=== PATIENT | female | born 1990 | race Caucasian/White ===

== ENCOUNTER 2022-05-15 13:01 | Outpatient (CLI) | payer MEDICAID | END 2022-05-15 23:59 | disposition critical access hospital (66) | LOC: EMS 13:01 | DX: M54.6 Pain in thoracic spine (principal); R07.9 Chest pain, unspecified; R11.2 Nausea with vomiting, unspecified | CPT/HCPCS: A0425; A0427; A0999 ==

== ENCOUNTER 2022-05-15 13:21 | Emergency (ER) | payer MEDICAID ==
[2022-05-15] MEDS ORDERED: iohexoL-300 100 ML VIAL ONE (13:33)
--- NOTE | 2022-05-15 13:37 | ED Physician Documentation ---
PD HPI CHEST PAIN - Stated complaint Stated Complaint: BACK PX - Chief complaint Chief Complaint: Cardiac - History obtained from History obtained from: Patient - Additional information Additional information: Otherwise healthy 31-year-old woman who is 1 month from an uncomplicated vaginal delivery was at the case assistant's office today with her baby, she is breast-feeding and she developed severe sudden onset none motion related mid T-spine pain that radiates to the chest associated with shortness of breath "from Pain." She became nauseous and vomited with it. This is never happened before. There was no pain this morning. No family or personal history of vascular disease. PD PAST MEDICAL HISTORY - Present Medications Home Medications: Ambulatory Orders Medication Instructions Recorded Confirmed No Known Home Medications 05/15/22 05/15/22 - Allergies Allergies/Adverse Reactions: Allergies Allergy/AdvReac Type Severity Reaction Status Date / Time No Known Drug Allergies Allergy Verified 05/15/22 13:26 PD ED PE NORMAL - Vitals Vital signs reviewed: Yes - General General: Alert and oriented X 3 (She appears uncomfortable) - HEENT HEENT: PERRL, EOMI - Neck Neck: Supple, no meningeal sign, No bony TTP - Cardiac Cardiac: RRR, No murmur, Strong equal pulses (Radial) - Respiratory Respiratory: No respiratory distress, Clear bilaterally - Abdomen Abdomen: Non tender - Derm Derm: Normal color, Warm and dry - Extremities Extremities: No edema, No calf tenderness / cord - Neuro Neuro: Alert and oriented X 3, Normal speech Results - Vitals Vitals: Vital Signs - 24 hr 05/15/22 05/15/22 05/15/22 13:25 13:26 13:33 Temperature 36.8 C Heart Rate 72 67 Respiratory 16 28 H 19 Rate Blood Pressure 119/74 O2 Saturation 100 99 05/15/22 14:15 Temperature Heart Rate 75 Respiratory 16 Rate Blood Pressure 113/68 O2 Saturation 98 Oxygen O2 Source Room air - EKG (time done) 1324 EKG releavant findings:: EKG personally interpreted by author of this note. Relevant findings are: Rate: Rate (enter#) (71) Rhythm: NSR [place]: Normal Intervals: Normal OR QRS: Normal Ischemia: Normal ST segments - Labs Labs: Laboratory Tests 05/15/22 05/15/22 05/15/22 13:36 13:36 13:36 WBC 7.3 RBC 4.79 Hgb 13.7 Hct 41.3 MCV 86.2 MCH 28.6 MCHC 33.2 RDW 11.9 L Plt Count 291 MPV 10.2 Neut # (Auto) 4.4 Lymph # (Auto) 2.3 [place] # (Auto) 0.3 Eos # (Auto) 0.3 Baso # (Auto) 0.0 Absolute Nucleated RBC 0.00 Nucleated RBC % 0.0 PT 10.9 INR 1.0 Sodium 138 Potassium 3.7 Chloride 110 Carbon Dioxide 22 Anion Gap 6.0 BUN 14 Creatinine 0.7 Estimated GFR (MDRD) 97 Glucose 99 Calcium 8.8 Total Bilirubin 0.5 AST 56 H ALT 47 Alkaline Phosphatase 91 Total Protein 6.9 Albumin 4.0 Globulin 2.9 Albumin/Globulin Ratio 1.4 PD Medical Decision Making - ED course ED course: 31-year-old woman who is 1 month presents with sudden onset back pain radiating to the chest and looks uncomfortable with declines pain medication. At least initially, she did to submit to some Tylenol later noting that she is breast-feeding. The initial main concern was for aortic pathology, less likely would be atypical angina. CT angios studies showed no vascular issues and her EKG was normal but she was noted to have gallstones. She is not tender in the right upper quadrant so I discussed with the patient that that could be causing her pain but was not necessarily the cause and as such she was encouraged to return if pain recurred noting that it got much better during the course of the visit. But if it becomes a recurrent milder issue she should follow-up with the surgeon. Departure - Departure Disposition: 01 Home, Self Care Clinical Impression: Back pain, Chest pain, Cholelithiasis Condition: Good Record reviewed to determine appropriate education?: Yes Instructions: ED Chest Pain Atypical Unkn Cause, Gallstones Dc Comments: As discussed, the only finding of note today was gallstones. No evidence of active serious issue, noting that we were specifically worried about your aorta based on the history when you got here, no evidence of anything going on there. If the pain becomes a recurrent issue you should follow-up with a surgeon for consideration of cholecystectomy if it is your gallbladder but if it comes back and is severe again please return for reevaluation.
[2022-05-15 13:41] LABS: BASOPHILS % (AUTO) 0.3 %; EOSINOPHILS # (AUTO) 0.3 10^3/uL (0.0-0.7); HCT - HEMATOCRIT 41.3 % (37.0-47.0); HGB - HEMOGLOBIN 13.7 g/dL (12.0-16.0); LYMPHOCYTES # (AUTO) 2.3 10^3/uL (1.5-3.5); LYMPHOCYTES % (AUTO) 31.5 %; MEAN CORPUSCULAR HEMOGLOBIN 28.6 pg (27.0-31.0); MEAN CORPUSCULAR HGB CONC 33.2 g/dL (32.0-36.0); MEAN CORPUSCULAR VOLUME 86.2 fL (81.0-99.0); MEAN PLATELET VOLUME 10.2 fL (7.9-10.8); MONOCYTES # (AUTO) 0.3 10^3/uL (0.0-1.0); NEUTROPHILS # (AUTO) 4.4 10^3/uL (1.5-6.6); NEUTROPHILS % (AUTO) 59.9 %; PLT - PLATELET COUNT 291 10^3/uL (130-450); RED BLOOD COUNT 4.79 10^6/uL (4.20-5.40); RED CELL DISTRIBUTION WIDTH 11.9 % (12.0-15.0); WHITE BLOOD COUNT 7.3 x10^3/uL (4.8-10.8)
[2022-05-15 13:53] LABS: PT - PROTHROMBIN TIME 10.9 secs (9.9-12.6)
[2022-05-15] MEDS ORDERED: ACETAMINOPHEN 500 MG TABLET PO STA (14:01)
[2022-05-15] MEDS ORDERED: iohexoL-300 100 ML VIAL IVP ONE (14:09)
--- OUTSIDE RECORDS SUMMARY | 2022-05-15 14:12 | EXTERNAL MEDICAL SUMMARY RPT | Continuity of Care Document ---
:1990 Author Organization [facility] Address [address] [place] [address] Phone Care Team Providers Name Role Phone Jolene Farrell Unavailable Unavailable Allergies and Intolerances date description facility type (no date) No Known Drug Allergies [facility] (unkn own) Encounters No information. Functional Status No information. Immunizations No information. Medications date description facility 2022-03-18 00:00 Sertraline [facility] 2022-04-15 00:00 Valacyclovir [facility] 2022-03-18 00:00 Aspirin [facility] Problems date description facility 2022-04-06 00:00 Decreased movement during pregnan cy [facility] 2022-04-06 20:40 Decreased movements, unspecified [facility] trimester, not applic 2022-04-09 10:02 Decreased movements, unspecified [facility] trimester, not applic 2022-04-12 13:46 Decreased movements, unspecified [facility] trimester, not applic 2022-04-15 00:00 Anogenital herpes simplex virus (HSV) i nfection [facility] 2022-04-15 00:00 Depression [facility] 2022-04-15 00:00 Anxiety [facility] 2022-04-15 00:00 Normal spontaneous vaginal delivery [facility] 2022-04-16 10:51 Encounter for full-term uncomplicated d [facility] Procedures No information. Results/Labs test date author facility value unit interpret ation Result panel 1 (unknown) (no date) (unknown[facility]) Result panel 2 (unknown) (no date) (unknown) [place] ([facility] unknown) Result panel 3 (unknown) (no date) (unknown) [place] [facility] unknown) Result panel 4 (unknown) (no date) (unknown) [place] [facility] unknown) Result panel 5 (unknown) (no date) (unknown[facility]) Result panel 6 (unknown) (no date) (unknown) [facility]) Result panel 7 (unknown) (no date) (unknown[facility]) Result panel 8 (unknown) (no date) (unknown) [facility]) Result panel 9 (unknown) (no date) (unknown[facility]) Result panel 10 (unknown) (no date) (unknown[facility]) Result panel 11 (unknown) (no date) (unknown[facility]) Result panel 12 (unknown) (no date) (unknown[facility]) Result panel 13 (unknown) (no (unknown) (unknown) (no value) (units (unk nown) date) unknown) (unknown) (no (unknown) (unknown) 'aggressively' (units ( unknown) date) scratched it unknown) yesterday with her fingernail, and caused some minor (unknown) (no (unknown) (unknown) [id number] (units (unkno wn) date) unknown) (unknown) (no (unknown) (unknown) 03/18/22 (units (unkno wn) date) unknown) (unknown) (no (unknown) (unknown) 03/18/22] (units (unkn own) date) unknown) (unknown) (no (unknown) (unknown) 045 (units (unkno wn) date) unknown) (unknown) (no (unknown) (unknown) 10:49 (units (unkno wn) date) unknown) (unknown) (no (unknown) (unknown) Age/Sex: 31 / F (units (unknown) date) Date of Service: unknown) (unknown) (no (unknown) (unknown) Allergies (units (unkn own) date) unknown) (unknown) (no (unknown) (unknown) [facility] (units (unknown) date) Medicine unknown) (unknown) (no (unknown) (unknown) [place], [place] (units ( unknown) date) [id number] unknown) (unknown) (no (unknown) (unknown) Attending Dr: (units ( unknown) date) Bree Giles unknown) Maegan (unknown) (no (unknown) (unknown) BMI 31.4 (units (unkno wn) date) unknown) (unknown) (no (unknown) (unknown) BP 118/70 (units (unkn own) date) unknown) (unknown) (no (unknown) (unknown) Blood Pressure (units (unknown) date) Location Lt unknown) radial (unknown) (no (unknown) (unknown) : 1990 (units (unknown) date) Acct:[id number] unknown) (unknown) (no (unknown) (unknown) Dept at (units (unkno wn) date) . unknown) (unknown) (no (unknown) (unknown) Documented By: (units (unknown) date) Bree Giles unknown) Maegan 03/18/22 1 (unknown) (no (unknown) (unknown) Draft (units (unkno wn) date) unknown) (unknown) (no (unknown) (unknown) Height 5 ft 3 in (units (unknown) date) unknown) (unknown) (no (unknown) (unknown) Intake Note: (units (u nknown) date) unknown) (unknown) (no (unknown) (unknown) Intake performed (units (unknown) date) by: Kita Garner unknown) (unknown) (no (unknown) (unknown) Intake (units (unkno wn) date) unknown) (unknown) (no (unknown) (unknown) Intake- Clincial (units (unknown) date) Staff unknown) (unknown) (no (unknown) (unknown) Loc: [facility] (units (unkno wn) date) unknown) (unknown) (no (unknown) (unknown) Medications (units (un known) date) unknown) (unknown) (no (unknown) (unknown) No Known Drug (units ( unknown) date) Allergies Allergy unknown) (Unverified 03/18/22 10:48) (unknown) (no (unknown) (unknown) Oxygen Delivery (units (unknown) date) Method room air unknown) (unknown) (no (unknown) (unknown) Patient presents (units (unknown) date) to [facility] with unknown) concerns for itching and pain to right ear. Patient (unknown) (no (unknown) (unknown) Patient: (units (unkno wn) date) Maria Esther Cameron unknown) MR#: [id number] (unknown) (no (unknown) (unknown) Position Sitting (units (unknown) date) unknown) (unknown) (no (unknown) (unknown) Pulse 88 (units (unkno wn) date) unknown) (unknown) (no (unknown) (unknown) Pulse Oximetry (units (unknown) date) (%) 98 unknown) (unknown) (no (unknown) (unknown) Pulse Source (units (u nknown) date) Monitor unknown) (unknown) (no (unknown) (unknown) Reason For Visit (units (unknown) date) unknown) (unknown) (no (unknown) (unknown) Respiration 16 (units (unknown) date) unknown) (unknown) (no (unknown) (unknown) Signed By: (units (unk nown) date) unknown) (unknown) (no (unknown) (unknown) Temp 98.5 F (units (un known) date) unknown) (unknown) (no (unknown) (unknown) Temp Source (units (un known) date) Temporal Artery unknown) Scan (unknown) (no (unknown) (unknown) This note may (units ( unknown) date) have been all or unknown) partially generated using voice recognition (unknown) (no (unknown) (unknown) Visit Reasons: (units (unknown) date) [employer] Right ear unknown) itching x 2 months (unknown) (no (unknown) (unknown) Vitals (units (unkno wn) date) unknown) (unknown) (no (unknown) (unknown) [facility] (units (unknown) date) Visit unknown) (unknown) (no (unknown) (unknown) Weight 177 lb 7 (units (unknown) date) oz unknown) (unknown) (no (unknown) (unknown) aspirin 81 mg (units ( unknown) date) chewable tablet unknown) 81 mg PO DAILY 03/18/22 [History Confirmed (unknown) (no (unknown) (unknown) bleeding. She (units (u nknown) date) reports increased unknown) pain and tenderness in the ear, radiating to her (unknown) (no (unknown) (unknown) have occurred. (units (unknown) date) If there are any unknown) questions, please contact the Medical Records (unknown) (no (unknown) (unknown) jaw since (units (unkn own) date) scratching the unknown) ear canal yesterday. Denies fever, congestion, or any (unknown) (no (unknown) (unknown) may occur. (units (unk nown) date) Occasional unknown) wrong-word or 'sound-alike' substitutions may have (unknown) (no (unknown) (unknown) occurred due to (units (unknown) date) the inherent unknown) limitations of voice recognition software. Please (unknown) (no (unknown) (unknown) read the note (units ( unknown) date) carefully and unknown) recognize, using context, where these substitutions (unknown) (no (unknown) (unknown) respiratory (units (un known) date) symptoms. Patient unknown) is currently 36 weeks . (unknown) (no (unknown) (unknown) sertraline 100 (units (unknown) date) mg tablet 100 mg unknown) PO DAILY 03/18/22 [History Confirmed 03/18/22] (unknown) (no (unknown) (unknown) software. 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 She reports she Result panel 14 (unknown) (no (unknown) (unknown) (no value) (units (unk nown) date) unknown) (unknown) (no (unknown) (unknown) 'aggressively' (units ( unknown) date) scratched it unknown) yesterday with her fingernail, and caused some minor (unknown) (no (unknown) (unknown) [id number] (units (unkno wn) date) unknown) (unknown) (no (unknown) (unknown) 03/18/22 (units (unkno wn) date) unknown) (unknown) (no (unknown) (unknown) 03/18/22] (units (unkn own) date) unknown) (unknown) (no (unknown) (unknown) 045 (units (unkno wn) date) unknown) (unknown) (no (unknown) (unknown) 10:49 (units (unkno wn) date) unknown) (unknown) (no (unknown) (unknown) 31-year-old (units (un known) date) female who is 36 unknown) weeks 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 (unknown) (no (unknown) (unknown) 7.5 mL 0RF (units (unk nown) date) otitis externa unknown) (unknown) (no (unknown) (unknown) Age/Sex: 31 / F (units (unknown) date) Date of Service: unknown) (unknown) (no (unknown) (unknown) All systems (units (un known) date) reviewed + are unknown) unremarkable except as noted in HPI and below (unknown) (no (unknown) (unknown) Allergies (units (unkn own) date) unknown) (unknown) (no (unknown) (unknown) [facility] (units (unknown) date) Medicine unknown) (unknown) (no (unknown) (unknown) [place], [place] (units ( unknown) date) [id number] unknown) (unknown) (no (unknown) (unknown) Assessment + (units (u nknown) date) Plan unknown) (unknown) (no (unknown) (unknown) Attending Dr: (units ( unknown) date) Bree Giles unknown) P.A-C (unknown) (no (unknown) (unknown) BACK: Nontender (units (unknown) date) without deformity unknown) or crepitance. No flank tenderness. (unknown) (no (unknown) (unknown) BMI 31.4 (units (unkno wn) date) unknown) (unknown) (no (unknown) (unknown) BP 118/70 (units (unkn own) date) unknown) (unknown) (no (unknown) (unknown) Blood Pressure (units (unknown) date) Location Lt unknown) radial (unknown) (no (unknown) (unknown) CARDIOVASCULAR: (units (unknown) date) Regular rate and unknown) rhythm without murmurs, gallops, or rubs. (unknown) (no (unknown) (unknown) Chief Complaint (units (unknown) date) unknown) (unknown) (no (unknown) (unknown) Chief Complaint: (units (unknown) date) right ear pain, unknown) pressure, itching (unknown) (no (unknown) (unknown) Const (units (unkno wn) date) unknown) (unknown) (no (unknown) (unknown) : 1990 (units (unknown) date) Acct:[id number] unknown) (unknown) (no (unknown) (unknown) Dept at (units (unkno wn) date) . unknown) (unknown) (no (unknown) (unknown) Details: (units (unkno wn) date) unknown) (unknown) (no (unknown) (unknown) Documented By: (units (unknown) date) Bree Giles unknown) Maegan 03/18/22 1 (unknown) (no (unknown) (unknown) Draft (units (unkno wn) date) unknown) (unknown) (no (unknown) (unknown) EAR-RIGHT Q12H (units (unknown) date) otitis externa 10 unknown) days #7.5 mL 03/18/22 [Rx Confirmed 03/18/22] (unknown) (no (unknown) (unknown) ENT: Nose (units (unkn own) date) without bleeding, unknown) purulent drainage. Throat without erythema, (unknown) (no (unknown) (unknown) EXTREMITIES: No (units (unknown) date) edema or joint unknown) tenderness. (unknown) (no (unknown) (unknown) EYES: Pupils (units (u nknown) date) equal round and unknown) reactive. Extraocular motions intact. No scleral (unknown) (no (unknown) (unknown) Exam Narrative (units (unknown) date) unknown) (unknown) (no (unknown) (unknown) Exam Narrative: (units (unknown) date) unknown) (unknown) (no (unknown) (unknown) Exam (units (unkno wn) date) unknown) (unknown) (no (unknown) (unknown) GASTROINTESTINAL (units (unknown) date) : Abdomen unknown) protuberant consistent with 32 weeks' gestation. (unknown) (no (unknown) (unknown) GENERAL: 31 year (units (unknown) date) old patient unknown) appears stated age. Well-developed patient, in mild (unknown) (no (unknown) (unknown) HEAD: (units (unkno wn) date) Atraumatic. unknown) Normocephalic. (unknown) (no (unknown) (unknown) HPI (units (unkno wn) date) unknown) (unknown) (no (unknown) (unknown) Height 160.02 cm (units (unknown) date) unknown) (unknown) (no (unknown) (unknown) Intake Note: (units (u nknown) date) unknown) (unknown) (no (unknown) (unknown) Intake performed (units (unknown) date) by: Kita Garner unknown) (unknown) (no (unknown) (unknown) Intake (units (unkno wn) date) unknown) (unknown) (no (unknown) (unknown) Intake- Clincial (units (unknown) date) Staff unknown) (unknown) (no (unknown) (unknown) Loc: [facility] (units (unkno wn) date) unknown) (unknown) (no (unknown) (unknown) Medications (units (un known) date) unknown) (unknown) (no (unknown) (unknown) Medications: (units (u nknown) date) unknown) (unknown) (no (unknown) (unknown) NECK: Trachea (units ( unknown) date) midline. Non unknown) tender (unknown) (no (unknown) (unknown) NEURO: AOx3. (units (u nknown) date) unknown) (unknown) (no (unknown) (unknown) New (units (unkno wn) date) unknown) (unknown) (no (unknown) (unknown) No Known Drug (units ( unknown) date) Allergies Allergy unknown) (Unverified 03/18/22 10:48) (unknown) (no (unknown) (unknown) Oxygen Delivery (units (unknown) date) Method room air unknown) (unknown) (no (unknown) (unknown) Patient presents (units (unknown) date) to [facility] with unknown) concerns for itching and pain to right ear. Patient (unknown) (no (unknown) (unknown) Patient: (units (unkno wn) date) RakeshMaria Esther S unknown) MR#: [id number] (unknown) (no (unknown) (unknown) Position Sitting (units (unknown) date) unknown) (unknown) (no (unknown) (unknown) Pulse 88 (units (unkno wn) date) unknown) (unknown) (no (unknown) (unknown) Pulse Oximetry (units (unknown) date) (%) 98 unknown) (unknown) (no (unknown) (unknown) Pulse Source (units (u nknown) date) Monitor unknown) (unknown) (no (unknown) (unknown) RESPIRATORY: (units (un known) date) Clear to unknown) auscultation. Breath sounds equal bilaterally. No wheezes, (unknown) (no (unknown) (unknown) ROS (units (unkno wn) date) unknown) (unknown) (no (unknown) (unknown) Reason For Visit (units (unknown) date) unknown) (unknown) (no (unknown) (unknown) Respiration 16 (units (unknown) date) unknown) (unknown) (no (unknown) (unknown) SKIN: No rash or (units (unknown) date) erythema of unknown) visible areas (unknown) (no (unknown) (unknown) Signed By: (units (unk nown) date) unknown) (unknown) (no (unknown) (unknown) Temp 98.5 F (units (un known) date) unknown) (unknown) (no (unknown) (unknown) Temp Source (units (un known) date) Temporal Artery unknown) Scan (unknown) (no (unknown) (unknown) This note may (units ( unknown) date) have been all or unknown) partially generated using voice recognition (unknown) (no (unknown) (unknown) Visit Reasons: (units (unknown) date) [employer] Right ear unknown) itching x 2 months (unknown) (no (unknown) (unknown) Vitals (units (unkno wn) date) unknown) (unknown) (no (unknown) (unknown) Walk In Clinic (units (unknown) date) Visit unknown) (unknown) (no (unknown) (unknown) Weight 80.484 kg (units (unknown) date) unknown) (unknown) (no (unknown) (unknown) aspirin 81 mg (units ( unknown) date) chewable tablet unknown) 81 mg PO DAILY 03/18/22 [History Confirmed (unknown) (no (unknown) (unknown) at the inferior (units (unknown) date) portion of the unknown) canal consistent with early otitis externa or (unknown) (no (unknown) (unknown) bleeding. She (units (u nknown) date) reports increased unknown) pain and tenderness in the ear, radiating to her (unknown) (no (unknown) (unknown) ciprofloxacin (units ( unknown) date) 0.3 unknown) %-dexamethasone 0.1 % ear drops,suspension (Ciprodex) 4 drp (unknown) (no (unknown) (unknown) ciprofloxacin-de (units (unknown) date) xamethasone unknown) 0.3-0.1 % (Ciprodex) 4 drps EAR-RIGHT Q12H 10 days (unknown) (no (unknown) (unknown) distress. (units (unkn own) date) unknown) (unknown) (no (unknown) (unknown) earaches as a (units ( unknown) date) child and this unknown) does not feel like a typical earache but she says (unknown) (no (unknown) (unknown) half ago her ear (units (unknown) date) became painful on unknown) the right and has been worsening since now (unknown) (no (unknown) (unknown) have occurred. (units (unknown) date) If there are any unknown) questions, please contact the Medical Records (unknown) (no (unknown) (unknown) her (units ( unknown) date) has been unknown) progressing well this is her 2nd . She went to (unknown) (no (unknown) (unknown) icterus. No (units (un known) date) injection or unknown) drainage. (unknown) (no (unknown) (unknown) is actually been (units (unknown) date) having itching in unknown) her right ear for about 2 months 2 days ago (unknown) (no (unknown) (unknown) it became so (units (un known) date) bothersome that unknown) she was itching in her ear using her pinky nail and (unknown) (no (unknown) (unknown) it is very (units (unk nown) date) painful. She unknown) denies any other complaints or concerns and states that (unknown) (no (unknown) (unknown) jaw since (units (unkn own) date) scratching the unknown) ear canal yesterday. Denies fever, congestion, or any (unknown) (no (unknown) (unknown) may occur. (units (unk nown) date) Occasional unknown) wrong-word or 'sound-alike' substitutions may have (unknown) (no (unknown) (unknown) membrane normal (units (unknown) date) appearance pearly unknown) duran with cone of light visible. Right (unknown) (no (unknown) (unknown) nausea vomiting (units (unknown) date) diarrhea or any unknown) other symptoms. (unknown) (no (unknown) (unknown) occurred due to (units (unknown) date) the inherent unknown) limitations of voice recognition software. Please (unknown) (no (unknown) (unknown) possibly (units (unkno wn) date) cellulitis. Teeth unknown) unremarkable. No oral swelling noted. No oral (unknown) (no (unknown) (unknown) presents with (units ( unknown) date) concern for right unknown) ear pain pressure in itching. Patient states he (unknown) (no (unknown) (unknown) rales, or (units (unkn own) date) rhonchi. unknown) (unknown) (no (unknown) (unknown) read the note (units ( unknown) date) carefully and unknown) recognize, using context, where these substitutions (unknown) (no (unknown) (unknown) respiratory (units (un known) date) symptoms. Patient unknown) is currently 36 weeks . (unknown) (no (unknown) (unknown) sertraline 100 (units (unknown) date) mg tablet 100 mg unknown) PO DAILY 03/18/22 [History Confirmed 03/18/22] (unknown) (no (unknown) (unknown) she rayo blood. (units (unknown) date) She did not think unknown) a whole lot of it but then about a day and a (unknown) (no (unknown) (unknown) she states that (units (unknown) date) there is an unknown) intense pressure and she notices pain in her ear (unknown) (no (unknown) (unknown) significant pain (units (unknown) date) with manipulation unknown) of the tragus, no pain with manipulation of (unknown) (no (unknown) (unknown) software. 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 She reports she (unknown) (no (unknown) (unknown) tenderness. (units (un known) date) unknown) (unknown) (no (unknown) (unknown) the dentist last (units (unknown) date) week and has no unknown) known dental problems. Denies fevers chills (unknown) (no (unknown) (unknown) the pinna. The (units (unknown) date) ear canal on the unknown) right is inflamed erythematous slightly swollen (unknown) (no (unknown) (unknown) tonsillar (units (unkn own) date) hypertrophy or unknown) exudate. Airway patent. Left ear canal and tympanic (unknown) (no (unknown) (unknown) tympanic (units (unkno wn) date) membrane is unknown) pearly duran with cone of light visible. Patient has (unknown) (no (unknown) (unknown) when she chews. (units (unknown) date) She is not seen unknown) any drainage from her ear. She states she had Result panel 15 (unknown) (no (unknown) (unknown) (no value) (units (unk nown) date) unknown) (unknown) (no (unknown) (unknown) 'aggressively' (units ( unknown) date) scratched it unknown) yesterday with her fingernail, and caused some minor (unknown) (no (unknown) (unknown) (1) Otitis (units (unk nown) date) externa: unknown) (unknown) (no (unknown) (unknown) [id number] (units (unkno wn) date) unknown) (unknown) (no (unknown) (unknown) 03/18/22 1215 (units ( unknown) date) unknown) (unknown) (no (unknown) (unknown) 03/18/22 (units (unkno wn) date) unknown) (unknown) (no (unknown) (unknown) 03/18/22] (units (unkn own) date) unknown) (unknown) (no (unknown) (unknown) 045 (units (unkno wn) date) unknown) (unknown) (no (unknown) (unknown) 10:49 (units (unkno wn) date) unknown) (unknown) (no (unknown) (unknown) 31-year-old (units (un known) date) female 36 weeks unknown) presents with concern for right ear pain (unknown) (no (unknown) (unknown) 31-year-old (units (un known) date) female who is 36 unknown) weeks 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 (unknown) (no (unknown) (unknown) 7.5 mL 0RF (units (unk nown) date) otitis externa unknown) (unknown) (no (unknown) (unknown) Age/Sex: 31 / F (units (unknown) date) Date of Service: unknown) (unknown) (no (unknown) (unknown) All systems (units (un known) date) reviewed + are unknown) unremarkable except as noted in HPI and below (unknown) (no (unknown) (unknown) Allergies (units (unkn own) date) unknown) (unknown) (no (unknown) (unknown) [facility] (units (unknown) date) Medicine unknown) (unknown) (no (unknown) (unknown) [place] (units ( unknown) date) [id number] unknown) (unknown) (no (unknown) (unknown) Assessment + (units (u nknown) date) Plan unknown) (unknown) (no (unknown) (unknown) Attending Dr: (units ( unknown) date) Bree Giles unknown) P.A-C (unknown) (no (unknown) (unknown) BACK: Nontender (units (unknown) date) without deformity unknown) or crepitance. No flank tenderness. (unknown) (no (unknown) (unknown) BMI 31.4 (units (unkno wn) date) unknown) (unknown) (no (unknown) (unknown) BP 118/70 (units (unkn own) date) unknown) (unknown) (no (unknown) (unknown) Blood Pressure (units (unknown) date) Location Lt unknown) radial (unknown) (no (unknown) (unknown) CARDIOVASCULAR: (units (unknown) date) Regular rate and unknown) rhythm without murmurs, gallops, or rubs. (unknown) (no (unknown) (unknown) Chief Complaint (units (unknown) date) unknown) (unknown) (no (unknown) (unknown) Chief Complaint: (units (unknown) date) right ear pain, unknown) pressure, itching (unknown) (no (unknown) (unknown) Ciprodex drops (units (unknown) date) she should not unknown) ignore them and immediately get rechecked, can (unknown) (no (unknown) (unknown) Const (units (unkno wn) date) unknown) (unknown) (no (unknown) (unknown) Counseled the (units ( unknown) date) patient if she unknown) feels her symptoms are not improving with the (unknown) (no (unknown) (unknown) : 1990 (units (unknown) date) Acct:[id number] unknown) (unknown) (no (unknown) (unknown) Dept at (units (unkno wn) date) . unknown) (unknown) (no (unknown) (unknown) Details: (units (unkno wn) date) unknown) (unknown) (no (unknown) (unknown) Documented By: (units (unknown) date) Bree Giles unknown) Maegan 03/18/22 1 (unknown) (no (unknown) (unknown) EAR-RIGHT Q12H (units (unknown) date) otitis externa 10 unknown) days #7.5 mL 03/18/22 [Rx Confirmed 03/18/22] (unknown) (no (unknown) (unknown) ENT: Nose (units (unkn own) date) without bleeding, unknown) purulent drainage. Throat without erythema, (unknown) (no (unknown) (unknown) EXTREMITIES: No (units (unknown) date) edema or joint unknown) tenderness. (unknown) (no (unknown) (unknown) EYES: Pupils (units (u nknown) date) equal round and unknown) reactive. Extraocular motions intact. No scleral (unknown) (no (unknown) (unknown) Exam Narrative (units (unknown) date) unknown) (unknown) (no (unknown) (unknown) Exam Narrative: (units (unknown) date) unknown) (unknown) (no (unknown) (unknown) Exam (units (unkno wn) date) unknown) (unknown) (no (unknown) (unknown) GASTROINTESTINAL (units (unknown) date) : Abdomen unknown) protuberant consistent with 32 weeks' gestation. (unknown) (no (unknown) (unknown) GENERAL: 31 year (units (unknown) date) old patient unknown) appears stated age. Well-developed patient, in mild (unknown) (no (unknown) (unknown) HEAD: (units (unkno wn) date) Atraumatic. unknown) Normocephalic. (unknown) (no (unknown) (unknown) HPI (units (unkno wn) date) unknown) (unknown) (no (unknown) (unknown) Height 160.02 cm (units (unknown) date) unknown) (unknown) (no (unknown) (unknown) Intake Note: (units (u nknown) date) unknown) (unknown) (no (unknown) (unknown) Intake performed (units (unknown) date) by: Kita Garner unknown) (unknown) (no (unknown) (unknown) Intake (units (unkno wn) date) unknown) (unknown) (no (unknown) (unknown) Intake- Clincial (units (unknown) date) Staff unknown) (unknown) (no (unknown) (unknown) Loc: [facility] (units (unkno wn) date) unknown) (unknown) (no (unknown) (unknown) Medications (units (un known) date) unknown) (unknown) (no (unknown) (unknown) Medications: (units (u nknown) date) unknown) (unknown) (no (unknown) (unknown) NECK: Trachea (units ( unknown) date) midline. Non unknown) tender (unknown) (no (unknown) (unknown) NEURO: AOx3. (units (u nknown) date) unknown) (unknown) (no (unknown) (unknown) New (units (unkno wn) date) unknown) (unknown) (no (unknown) (unknown) No Known Drug (units ( unknown) date) Allergies Allergy unknown) (Unverified 03/18/22 10:48) (unknown) (no (unknown) (unknown) Otitis externa (units (unknown) date) type: unspecified unknown) type Chronicity: acute Laterality: (unknown) (no (unknown) (unknown) Oxygen Delivery (units (unknown) date) Method room air unknown) (unknown) (no (unknown) (unknown) Patient presents (units (unknown) date) to [facility] with unknown) concerns for itching and pain to right ear. Patient (unknown) (no (unknown) (unknown) Patient: (units (unkno wn) date) Maria Esther Cameron S unknown) MR#: [id number] (unknown) (no (unknown) (unknown) Plan (units (unkno wn) date) unknown) (unknown) (no (unknown) (unknown) Position Sitting (units (unknown) date) unknown) (unknown) (no (unknown) (unknown) Pulse 88 (units (unkno wn) date) unknown) (unknown) (no (unknown) (unknown) Pulse Oximetry (units (unknown) date) (%) 98 unknown) (unknown) (no (unknown) (unknown) Pulse Source (units (u nknown) date) Monitor unknown) (unknown) (no (unknown) (unknown) Qualifiers: (units (un known) date) unknown) (unknown) (no (unknown) (unknown) RESPIRATORY: (units (un known) date) Clear to unknown) auscultation. Breath sounds equal bilaterally. No wheezes, (unknown) (no (unknown) (unknown) ROS (units (unkno wn) date) unknown) (unknown) (no (unknown) (unknown) Reason For Visit (units (unknown) date) unknown) (unknown) (no (unknown) (unknown) Respiration 16 (units (unknown) date) unknown) (unknown) (no (unknown) (unknown) SKIN: No rash or (units (unknown) date) erythema of unknown) visible areas (unknown) (no (unknown) (unknown) Signed By: (units (unk nown) date) <Electronically unknown) signed by Bree Giles> (unknown) (no (unknown) (unknown) Signed (units (unkno wn) date) unknown) (unknown) (no (unknown) (unknown) Temp 98.5 F (units (un known) date) unknown) (unknown) (no (unknown) (unknown) Temp Source (units (un known) date) Temporal Artery unknown) Scan (unknown) (no (unknown) (unknown) This note may (units ( unknown) date) have been all or unknown) partially generated using voice recognition (unknown) (no (unknown) (unknown) Visit Reasons: (units (unknown) date) [employer] Right ear unknown) itching x 2 months (unknown) (no (unknown) (unknown) Vitals (units (unkno wn) date) unknown) (unknown) (no (unknown) (unknown) Walk In Clinic (units (unknown) date) Visit unknown) (unknown) (no (unknown) (unknown) Weight 80.484 kg (units (unknown) date) unknown) (unknown) (no (unknown) (unknown) aspirin 81 mg (units ( unknown) date) chewable tablet unknown) 81 mg PO DAILY 03/18/22 [History Confirmed (unknown) (no (unknown) (unknown) at the inferior (units (unknown) date) portion of the unknown) canal consistent with early otitis externa or (unknown) (no (unknown) (unknown) be localized, (units ( unknown) date) she is no mastoid unknown) tenderness and some discomfort with worsening (unknown) (no (unknown) (unknown) bleeding. She (units (u nknown) date) reports increased unknown) pain and tenderness in the ear, radiating to her (unknown) (no (unknown) (unknown) ciprofloxacin (units ( unknown) date) 0.3 unknown) %-dexamethasone 0.1 % ear drops,suspension (Ciprodex) 4 drp (unknown) (no (unknown) (unknown) ciprofloxacin-de (units (unknown) date) xamethasone unknown) 0.3-0.1 % (Ciprodex) 4 drps EAR-RIGHT Q12H 10 days (unknown) (no (unknown) (unknown) consider oral (units ( unknown) date) antibiotics for unknown) cellulitis. At this time I do not think that is (unknown) (no (unknown) (unknown) distress. (units (unkn own) date) unknown) (unknown) (no (unknown) (unknown) ear pain with (units ( unknown) date) moving her jaw unknown) but no concerning oral findings on exam. Return (unknown) (no (unknown) (unknown) earaches as a (units ( unknown) date) child and this unknown) does not feel like a typical earache but she says (unknown) (no (unknown) (unknown) externa, right (units (unknown) date) ear unknown) (unknown) (no (unknown) (unknown) for 2 days in (units ( unknown) date) the setting of unknown) right ear itching for 2 months and scratching the (unknown) (no (unknown) (unknown) half ago her ear (units (unknown) date) became painful on unknown) the right and has been worsening since now (unknown) (no (unknown) (unknown) has had (units (unkno wn) date) persistent unknown) itching of that ear for 2 months do suspect otitis externa. (unknown) (no (unknown) (unknown) have occurred. (units (unknown) date) If there are any unknown) questions, please contact the Medical Records (unknown) (no (unknown) (unknown) her (units ( unknown) date) has been unknown) progressing well this is her 2nd . She went to (unknown) (no (unknown) (unknown) icterus. No (units (un known) date) injection or unknown) drainage. (unknown) (no (unknown) (unknown) inflammation and (units (unknown) date) swelling of the unknown) ear canal she does not have obvious discharge (unknown) (no (unknown) (unknown) inside of her (units ( unknown) date) ear canal a few unknown) days ago and drawing blood. Exam today suggestive (unknown) (no (unknown) (unknown) is actually been (units (unknown) date) having itching in unknown) her right ear for about 2 months 2 days ago (unknown) (no (unknown) (unknown) it became so (units (un known) date) bothersome that unknown) she was itching in her ear using her pinky nail and (unknown) (no (unknown) (unknown) it is very (units (unk nown) date) painful. She unknown) denies any other complaints or concerns and states that (unknown) (no (unknown) (unknown) jaw since (units (unkn own) date) scratching the unknown) ear canal yesterday. Denies fever, congestion, or any (unknown) (no (unknown) (unknown) may occur. (units (unk nown) date) Occasional unknown) wrong-word or 'sound-alike' substitutions may have (unknown) (no (unknown) (unknown) membrane normal (units (unknown) date) appearance pearly unknown) duran with cone of light visible. Right (unknown) (no (unknown) (unknown) nausea vomiting (units (unknown) date) diarrhea or any unknown) other symptoms. (unknown) (no (unknown) (unknown) necessary as I (units (unknown) date) am more unknown) suspicious for otitis externa though she does (unknown) (no (unknown) (unknown) occurred due to (units (unknown) date) the inherent unknown) limitations of voice recognition software. Please (unknown) (no (unknown) (unknown) of possibly (units (un known) date) early otitis unknown) externa or cellulitis of the ear canal. Given patient (unknown) (no (unknown) (unknown) or material (units (un known) date) typically seen in unknown) otitis externa. Patient's infection does seem to (unknown) (no (unknown) (unknown) possibly (units (unkno wn) date) cellulitis. Teeth unknown) unremarkable. No oral swelling noted. No oral (unknown) (no (unknown) (unknown) precautions (units (un known) date) provided, unknown) follow-up plan discussed, all questions answered. (unknown) (no (unknown) (unknown) presents with (units ( unknown) date) concern for right unknown) ear pain pressure in itching. Patient states he (unknown) (no (unknown) (unknown) rales, or (units (unkn own) date) rhonchi. unknown) (unknown) (no (unknown) (unknown) read the note (units ( unknown) date) carefully and unknown) recognize, using context, where these substitutions (unknown) (no (unknown) (unknown) respiratory (units (un known) date) symptoms. Patient unknown) is currently 36 weeks . (unknown) (no (unknown) (unknown) right Qualified (units (unknown) date) Code(s): H60.501 unknown) - Unspecified acute noninfective otitis (unknown) (no (unknown) (unknown) sertraline 100 (units (unknown) date) mg tablet 100 mg unknown) PO DAILY 03/18/22 [History Confirmed 03/18/22] (unknown) (no (unknown) (unknown) she rayo blood. (units (unknown) date) She did not think unknown) a whole lot of it but then about a day and a (unknown) (no (unknown) (unknown) she states that (units (unknown) date) there is an unknown) intense pressure and she notices pain in her ear (unknown) (no (unknown) (unknown) significant pain (units (unknown) date) with manipulation unknown) of the tragus, no pain with manipulation of (unknown) (no (unknown) (unknown) software. 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 She reports she (unknown) (no (unknown) (unknown) tenderness. No (units (unknown) date) mastoid unknown) tenderness. (unknown) (no (unknown) (unknown) the dentist last (units (unknown) date) week and has no unknown) known dental problems. Denies fevers chills (unknown) (no (unknown) (unknown) the pinna. The (units (unknown) date) ear canal on the unknown) right is inflamed erythematous slightly swollen (unknown) (no (unknown) (unknown) tonsillar (units (unkn own) date) hypertrophy or unknown) exudate. Airway patent. Left ear canal and tympanic (unknown) (no (unknown) (unknown) tympanic (units (unkno wn) date) membrane is unknown) pearly duran with cone of light visible. Patient has (unknown) (no (unknown) (unknown) when she chews. (units (unknown) date) She is not seen unknown) any drainage from her ear. She states she had Result panel 16 (unknown) (no (unknown) (unknown) (no value) (units (unk nown) date) unknown) (unknown) (no (unknown) (unknown) [id number] (units (unkno wn) date) unknown) (unknown) (no (unknown) (unknown) 31YO @ (units (unknown) date) 38wk2d here for unknown) evaluation for decreased FM. Took a nap this (unknown) (no (unknown) (unknown) Age/Sex: 31 / F (units (unknown) date) unknown) (unknown) (no (unknown) (unknown) BP 130/77, HR (units ( unknown) date) unknown) (unknown) (no (unknown) (unknown) Comments/Additio (units (unknown) date) nal reasons for unknown) admission: (unknown) (no (unknown) (unknown) : 1990 (units (unknown) date) Acct:[id number] unknown) (unknown) (no (unknown) (unknown) Date of Service: (units (unknown) date) 04/06/22 unknown) (unknown) (no (unknown) (unknown) Date of (units (unkno wn) date) evaluation: unknown) 04/06/22 (unknown) (no (unknown) (unknown) Feels like her (units (unknown) date) abdomen is tight, unknown) bit no contractions, VB or LOF. Uncomplicated (unknown) (no (unknown) (unknown) [facility] (units (unknown) date) [address] unknown) [place] [address] (unknown) (no (unknown) (unknown) Labor and (units (unkn own) date) Delivery Triage unknown) Note (unknown) (no (unknown) (unknown) On-call OB (units (unk nown) date) Provider: Jolene unknown) Juancarlos Farrell (unknown) (no (unknown) (unknown) Patient: (units (unkno wn) date) Maria Esther Cameron S unknown) MR#: [id number] (unknown) (no (unknown) (unknown) Primary OB (units (unk nown) date) Provider: Jolene unknown) Juancarlos Farrell (unknown) (no (unknown) (unknown) Provider: (units (unkn own) date) Sammi Farrell unknown) a T C.N.M. (unknown) (no (unknown) (unknown) Reason for (units (unk nown) date) Evaluation: Yes unknown) non-stress test non-stress test reason: decreased (unknown) (no (unknown) (unknown) Signed By: (units (unk nown) date) unknown) (unknown) (no (unknown) (unknown) Visit (units (unkno wn) date) Information unknown) (unknown) (no (unknown) (unknown) Vital Signs (units (un known) date) unknown) (unknown) (no (unknown) (unknown) Vital Signs: (units (u nknown) date) unknown) (unknown) (no (unknown) (unknown) evening and woke (units (unknown) date) up around 5:15pm unknown) and hasn't felt movement since waking up. (unknown) (no (unknown) (unknown) movement (units (unknown) date) unknown) (unknown) (no (unknown) (unknown) care w/ (units (unknown) date) CNM. unknown) Result panel 17 (unknown) (no (unknown) (unknown) (no value) (units (unk nown) date) unknown) (unknown) (no (unknown) (unknown) (1) Decreased (units ( unknown) date) movement: unknown) (unknown) (no (unknown) (unknown) (past 8 hours): (units (unknown) date) unknown) (unknown) (no (unknown) (unknown) [id number] (units (unkno wn) date) unknown) (unknown) (no (unknown) (unknown) 04/06/222025 (units ( unknown) date) unknown) (unknown) (no (unknown) (unknown) 31YO @ (units (unknown) date) 38wk2d here for unknown) evaluation for decreased FM. Took a nap this (unknown) (no (unknown) (unknown) Age/Sex: 31 / F (units (unknown) date) unknown) (unknown) (no (unknown) (unknown) BP 130/75, HR (units ( unknown) date) 95, T 36.4C unknown) Temporal (unknown) (no (unknown) (unknown) Baseline (units (unknown) date) heart rate: 145 unknown) (unknown) (no (unknown) (unknown) CE deferred- not (units (unknown) date) indicated unknown) (unknown) (no (unknown) (unknown) Category of (units (un known) date) Tracing: Reactive unknown) (unknown) (no (unknown) (unknown) Comments/Additio (units (unknown) date) nal reasons for unknown) admission: (unknown) (no (unknown) (unknown) Contraction (units (un known) date) Frequency unknown) (minutes): 0 (unknown) (no (unknown) (unknown) : 1990 (units (unknown) date) Acct:[id number] unknown) (unknown) (no (unknown) (unknown) Date of Service: (units (unknown) date) 04/06/22 unknown) (unknown) (no (unknown) (unknown) Date of (units (unkno wn) date) evaluation: unknown) 04/06/22 (unknown) (no (unknown) (unknown) Diagnosis, (units (unk nown) date) Plan/Disposition unknown) (unknown) (no (unknown) (unknown) Evaluation (units (unk nown) date) unknown) (unknown) (no (unknown) (unknown) Exam (units (unkno wn) date) unknown) (unknown) (no (unknown) (unknown) Feels like her (units (unknown) date) abdomen is tight, unknown) bit no contractions, VB or LOF. Uncomplicated (unknown) (no (unknown) (unknown) Monitor (units ( unknown) date) Decelerations: unknown) Absent (unknown) (no (unknown) (unknown) (units (unkno wn) date) Presentation: unknown) vertex (unknown) (no (unknown) (unknown) monitor (units ( unknown) date) accelerations: unknown) Present (unknown) (no (unknown) (unknown) Final Diagnosis (units (unknown) date) unknown) (unknown) (no (unknown) (unknown) (units (unkno wn) date) unknown) (unknown) (no (unknown) (unknown) [facility] (units (unknown) date) [address] [place] [address] unknown) [place] [address] (unknown) (no (unknown) (unknown) Labor and (units (unkn own) date) Delivery Triage unknown) Note (unknown) (no (unknown) (unknown) Movement felt by (units (unknown) date) patient during unknown) monitoring w/ reactive NST (unknown) (no (unknown) (unknown) OB Disposition: (units (unknown) date) home unknown) (unknown) (no (unknown) (unknown) On-call OB (units (unk nown) date) Provider: Jolene unknown) Juancarlos Farrell (unknown) (no (unknown) (unknown) Other: (units (unkno wn) date) unknown) (unknown) (no (unknown) (unknown) Patient: (units (unkno wn) date) CarlodcemmySaeede Toño unknown) MR#: [id number] (unknown) (no (unknown) (unknown) Plan/Disposition (units (unknown) date) unknown) (unknown) (no (unknown) (unknown) Plan: (units (unkno wn) date) unknown) (unknown) (no (unknown) (unknown) Primary OB (units (unk nown) date) Provider: Jolene Farrell (unknown) (no (unknown) (unknown) Problem details: (units (unknown) date) unknown) (unknown) (no (unknown) (unknown) Provider: (units (unkn own) date) Sammi Farrell unknown) osei Bauer C.N.M. (unknown) (no (unknown) (unknown) ROS: Yes All (units (u nknown) date) systems reviewed unknown) with the patient and are negative except as (unknown) (no (unknown) (unknown) Reason for (units (unk nown) date) Evaluation: Yes unknown) non-stress test non-stress test reason: decreased (unknown) (no (unknown) (unknown) Reassurance of (units (unknown) date) normal given. D/C unknown) to home with routine precautions. (unknown) (no (unknown) (unknown) Review of (units (unkn own) date) Systems unknown) (unknown) (no (unknown) (unknown) Signed (units (unkno wn) date) By:<Electronicall unknown) y signed by Jolene Farrell, C.N.M.> (unknown) (no (unknown) (unknown) Status: Acute (units ( unknown) date) unknown) (unknown) (no (unknown) (unknown) Variability: (units (u nknown) date) Moderate (11-25) unknown) (unknown) (no (unknown) (unknown) Visit (units (unkno wn) date) Information unknown) (unknown) (no (unknown) (unknown) Vital Signs (units (un known) date) unknown) (unknown) (no (unknown) (unknown) Vital Signs: (units (u nknown) date) unknown) (unknown) (no (unknown) (unknown) evening and woke (units (unknown) date) up around 5:15pm unknown) and hasn't felt movement since waking up. (unknown) (no (unknown) (unknown) movement (units (unknown) date) unknown) (unknown) (no (unknown) (unknown) otherwise (units (unkn own) date) documented unknown) (unknown) (no (unknown) (unknown) care w/ (units (unknown) date) CNM. unknown) (unknown) (no (unknown) (unknown) see above (units (unkn own) date) unknown) Result panel 18 (unknown) (no (unknown) (unknown) (no value) (units (unk nown) date) unknown) (unknown) (no (unknown) (unknown) [id number] (units (unkno wn) date) unknown) (unknown) (no (unknown) (unknown) Age/Sex: 31 / F (units (unknown) date) unknown) (unknown) (no (unknown) (unknown) Allergies (units (unkn own) date) unknown) (unknown) (no (unknown) (unknown) Allergy/AdvReac (units (unknown) date) Type Severity unknown) Reaction Status Date / Time (unknown) (no (unknown) (unknown) Chief (units (unkno wn) date) complaint: unknown) (unknown) (no (unknown) (unknown) : 1990 (units (unknown) date) Acct:[id number] unknown) (unknown) (no (unknown) (unknown) Date Patient (units (u nknown) date) Seen: 04/15/22 unknown) (unknown) (no (unknown) (unknown) Date of (units (unkno wn) date) Service: unknown) 04/15/22 (unknown) (no (unknown) (unknown) Date of (units (unkno wn) date) admission: unknown) 04/15/22 (unknown) (no (unknown) (unknown) Date/Time (units (unkn own) date) unknown) (unknown) (no (unknown) (unknown) Dating (units (unkno wn) date) criteria: LMP unknown) confirmed by 1st trimester US (unknown) (no (unknown) (unknown) Estimated Date (units (unknown) date) of Delivery: unknown) 03/21/22 (unknown) (no (unknown) (unknown) Estimated (units (unkn own) date) Gestational Age unknown) (weeks): 39w4d (unknown) (no (unknown) (unknown) : 2 (units (unk nown) date) unknown) (unknown) (no (unknown) (unknown) Maria Esther Lundberg (units (unkno wn) date) Rakesh is a 31 unknown) year old female here for frequent contractions for the (unknown) (no (unknown) (unknown) Maria Esther has had (units (unknown) date) a normal unknown) . 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 (unknown) (no (unknown) (unknown) History of (units (unk nown) date) Present unknown) Condition (unknown) (no (unknown) (unknown) History of (units (unk nown) date) Present unknown) (unknown) (no (unknown) (unknown) Home (units (unkno wn) date) Medications and unknown) Allergies (unknown) (no (unknown) (unknown) Home (units (unkno wn) date) Medications unknown) (unknown) (no (unknown) (unknown) [facility] (units (unknown) date) [address] [place] [address] unknown) [place] [address] (unknown) (no (unknown) (unknown) Medication (units (unk nown) date) Instructions unknown) Recorded Confirmed Type (unknown) (no (unknown) (unknown) Meds (units (unkno wn) date) unknown) (unknown) (no (unknown) (unknown) Narrative: (units (unk nown) date) unknown) (unknown) (no (unknown) (unknown) No Known Drug (units ( unknown) date) Allergies unknown) Allergy Unverified 03/18/22 10:48 (unknown) (no (unknown) (unknown) OB HPI (units (unkno wn) date) unknown) (unknown) (no (unknown) (unknown) 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 (units (unknown) date) + Physical unknown) (unknown) (no (unknown) (unknown) Obstetrical (units (un known) date) complications: unknown) none (history of GDM diagnosed with GTT but normal (unknown) (no (unknown) (unknown) Para: 1 (units (unkno wn) date) unknown) (unknown) (no (unknown) (unknown) Patient: (units (unkno wn) date) Maria Esther Cameron S unknown) MR#: [id number] (unknown) (no (unknown) (unknown) care: (units (unknown) date) good care, unknown) initiated at week # (10), number of visits (9) and (unknown) (no (unknown) (unknown) Provider: [place] (units (unknown) date) [place] unknown) (unknown) (no (unknown) (unknown) Signed By: (units (unk nown) date) unknown) (unknown) (no (unknown) (unknown) Time Patient (units (u nknown) date) Seen: 05:42 unknown) (unknown) (no (unknown) (unknown) aspirin 81 mg (units ( unknown) date) chewable tablet unknown) 81 mg PO DAILY 03/18/22 03/18/22 History (unknown) (no (unknown) (unknown) complications. (units (unknown) date) unknown) (unknown) (no (unknown) (unknown) glucose with (units (u nknown) date) monitoring. unknown) Refused GTT this . Normal monitoring at 36 (unknown) (no (unknown) (unknown) last 2-3 hours. (units (unknown) date) unknown) (unknown) (no (unknown) (unknown) pounds weight (units ( unknown) date) gain (24) unknown) (unknown) (no (unknown) (unknown) (units (unkn own) date) managed with unknown) diet and <20% normal values. x 1 without (unknown) (no (unknown) (unknown) sertraline 100 (units (unknown) date) mg tablet 100 mg unknown) PO DAILY 03/18/22 03/18/22 History (unknown) (no (unknown) (unknown) weeks.) (units (unkno wn) date) unknown) Result panel 19 (unknown) (no (unknown) (unknown) (no value) (units (unk nown) date) unknown) (unknown) (no (unknown) (unknown) [id number] (units (unkno wn) date) unknown) (unknown) (no (unknown) (unknown) 31 week Hct 37, (units (unknown) date) 31 week platelets unknown) 165, GBS negative) (unknown) (no (unknown) (unknown) Age/Sex: 31 / F (units (unknown) date) unknown) (unknown) (no (unknown) (unknown) Allergies (units (unkn own) date) unknown) (unknown) (no (unknown) (unknown) Allergy/AdvReac (units (unknown) date) Type Severity unknown) Reaction Status Date / Time (unknown) (no (unknown) (unknown) Blood type: A (units ( unknown) date) (+) positive unknown) (Antibody screen negative, Rubella immune, RPR NR, (unknown) (no (unknown) (unknown) Cell-free DNA: (units (unknown) date) unknown) (unknown) (no (unknown) (unknown) Chief complaint: (units (unknown) date) unknown) (unknown) (no (unknown) (unknown) : 1990 (units (unknown) date) Acct:[id number] unknown) (unknown) (no (unknown) (unknown) Date Patient (units (u nknown) date) Seen: 04/15/22 unknown) (unknown) (no (unknown) (unknown) Date of Service: (units (unknown) date) 04/15/22 unknown) (unknown) (no (unknown) (unknown) Date of (units (unkno wn) date) admission: unknown) 04/15/22 (unknown) (no (unknown) (unknown) Date/Time (units (unkn own) date) unknown) (unknown) (no (unknown) (unknown) Dating criteria: (units (unknown) date) LMP confirmed by unknown) 1st trimester US (unknown) (no (unknown) (unknown) Estimated Date (units (unknown) date) of Delivery: unknown) 03/21/22 (unknown) (no (unknown) (unknown) Estimated (units (unkn own) date) Gestational Age unknown) (weeks): 39w4d (unknown) (no (unknown) (unknown) : 2 (units (unk nown) date) unknown) (unknown) (no (unknown) (unknown) Maria Esther Cameron (units (unknown) date) is a 31 year old unknown) female here for frequent contractions for the (unknown) (no (unknown) (unknown) Maria Esther has had a (units (unknown) date) normal . 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 (unknown) (unknown) Discharge Summary (units (unknown) date) unknown) (unknown) (no (unknown) (unknown) Discharge orders + (units (unknown) date) Medications unknown) (unknown) (no (unknown) (unknown) Discharge (units (unkn own) date) provider: unknown) (unknown) (no (unknown) (unknown) Doctor (units (unkno wn) date) Miscellaneous, MD unknown) (unknown) (no (unknown) (unknown) Effort + (units (unkno wn) date) Inspection: normal unknown) respiratory effort (unknown) (no (unknown) (unknown) Eos # (Auto) 100 (units (unknown) date) unknown) (unknown) (no (unknown) (unknown) Eos % (Auto) 0.5 L (units (unknown) date) unknown) (unknown) (no (unknown) (unknown) Exam (units (unkno wn) date) unknown) (unknown) (no (unknown) (unknown) Extrem (units (unkno wn) date) unknown) (unknown) (no (unknown) (unknown) Eyes (units (unkno wn) date) unknown) (unknown) (no (unknown) (unknown) Follow (units (unkno wn) date) up/Referrals: unknown) (unknown) (no (unknown) (unknown) Functional status (units (unknown) date) at discharge: unknown) independent ambulation (unknown) (no (unknown) (unknown) GI (units (unkno wn) date) unknown) (unknown) (no (unknown) (unknown) (units (unkno wn) date) unknown) (unknown) (no (unknown) (unknown) Gender: Male (units (u nknown) date) unknown) (unknown) (no (unknown) (unknown) General: (units (unkno wn) date) appearance normal, unknown) both eyes and all related structures (unknown) (no (unknown) (unknown) General: gait (units ( unknown) date) normal and normal unknown) light touch, pain and propioception (unknown) (no (unknown) (unknown) General: healthy (units (unknown) date) appearing and unknown) comfortable (unknown) (no (unknown) (unknown) General: no rashes (units (unknown) date) or lesions noted unknown) (unknown) (no (unknown) (unknown) General: normal to (units (unknown) date) inspection and full unknown) ROM (unknown) (no (unknown) (unknown) Has provider been (units (unknown) date) notified: No unknown) (unknown) (no (unknown) (unknown) Hct 40.8 (units (unkno wn) date) unknown) (unknown) (no (unknown) (unknown) Hgb 13.8 (units (unkno wn) date) unknown) (unknown) (no (unknown) (unknown) Hospital Course (units (unknown) date) unknown) (unknown) (no (unknown) (unknown) Hospital Course: (units (unknown) date) unknown) (unknown) (no (unknown) (unknown) Delivery (units (unknown) date) Method: Natural unknown) Vaginal (unknown) (no (unknown) (unknown) Inspection: other (units (unknown) date) (Uterus firm, unknown) midline, U-1. ) (unknown) (no (unknown) (unknown) [facility] (units (unknown) date) [address] unknown) [place] [id number] (unknown) (no (unknown) (unknown) [facility] (units (unkno wn) date) MARIBEL Ovalle, unknown) FIELD ENGINEER (unknown) (no (unknown) (unknown) Label Comments: (units (unknown) date) unknown) (unknown) (no (unknown) (unknown) Laboratory Results (units (unknown) date) - last 24 hr unknown) (unknown) (no (unknown) (unknown) Labs (units (unkno wn) date) unknown) (unknown) (no (unknown) (unknown) Labs: (units (unkno wn) date) unknown) (unknown) (no (unknown) (unknown) Laceration (units (unk nown) date) Description: unknown) Perineal - 1st Degree (unknown) (no (unknown) (unknown) Lymph # (Auto) (units (unknown) date) 1500 unknown) (unknown) (no (unknown) (unknown) Lymph % (Auto) (units (unknown) date) 12.8 L unknown) (unknown) (no (unknown) (unknown) MCH 29.7 (units (unkno wn) date) unknown) (unknown) (no (unknown) (unknown) MCHC 33.8 (units (unkn own) date) unknown) (unknown) (no (unknown) (unknown) MCV 88.0 (units (unkno wn) date) unknown) (unknown) (no (unknown) (unknown) [facility] (units (unknown) date) Toño, MARIBEL, FIELD ENGINEER unknown) [Advanced Follow Up Rep] (unknown) (no (unknown) (unknown) Mental Status: (units (unknown) date) mental status unknown) grossly normal (unknown) (no (unknown) (unknown) Miscellaneous,Doct (units (unknown) date) or, MD [Primary unknown) Care Provider] (unknown) (no (unknown) (unknown) [place] # (Auto) 400 (units (unknown) date) unknown) (unknown) (no (unknown) (unknown) [place] % (Auto) 3.6 (units (unknown) date) unknown) (unknown) (no (unknown) (unknown) Neck (units (unkno wn) date) unknown) (unknown) (no (unknown) (unknown) Neck: normal (units (u nknown) date) visual inspection unknown) (unknown) (no (unknown) (unknown) Neuro (units (unkno wn) date) unknown) (unknown) (no (unknown) (unknown) Neut # (Auto) 9700 (units (unknown) date) H unknown) (unknown) (no (unknown) (unknown) Neut % (Auto) 82.8 (units (unknown) date) H unknown) (unknown) (no (unknown) (unknown) [place] (units (unkno wn) date) unknown) (unknown) (no (unknown) (unknown) No Action (units (unkn own) date) unknown) (unknown) (no (unknown) (unknown) Normal 2nd stage (units (unknown) date) resulted in NSVB unknown) over 1st degree laceration, unrepaired and (unknown) (no (unknown) (unknown) Nutritional (units (un known) date) Appearance: average unknown) body habitus (unknown) (no (unknown) (unknown) Objective (units (unkn own) date) unknown) (unknown) (no (unknown) (unknown) Orientation: (units (u nknown) date) alert, awake and unknown) oriented x3 (unknown) (no (unknown) (unknown) Other: (units (unkno wn) date) unknown) (unknown) (no (unknown) (unknown) Overall status at (units (unknown) date) discharge: patient unknown) is back to baseline (unknown) (no (unknown) (unknown) Patient (units (unkno wn) date) Disposition: Home unknown) (unknown) (no (unknown) (unknown) Patient: (units (unkno wn) date) Maria Esther Cameron unknown) MR#: [id number] (unknown) (no (unknown) (unknown) Peripartum Data (units (unknown) date) unknown) (unknown) (no (unknown) (unknown) Plt Count 156 (units ( unknown) date) unknown) (unknown) (no (unknown) (unknown) Prescriptions: (units (unknown) date) unknown) (unknown) (no (unknown) (unknown) Primary Care (units (u nknown) date) Provider: unknown) Miscellaneous,Docto r (unknown) (no (unknown) (unknown) Primary care (units (u nknown) date) physician: unknown) (unknown) (no (unknown) (unknown) Provider (units (unkno wn) date) unknown) (unknown) (no (unknown) (unknown) Provider: [facility] (units (unknown) date) Vasquez unknown) (unknown) (no (unknown) (unknown) Psych (units (unkno wn) date) unknown) (unknown) (no (unknown) (unknown) Pulse Rate 105 H (units (unknown) date) unknown) (unknown) (no (unknown) (unknown) RBC 4.64 (units (unkno wn) date) unknown) (unknown) (no (unknown) (unknown) RDW 14.1 (units (unkno wn) date) unknown) (unknown) (no (unknown) (unknown) Reason for (units (unk nown) date) consultation: unknown) Epidural (unknown) (no (unknown) (unknown) Report to your (units (unknown) date) healthcare provider unknown) any signs of infection, such as:: chills, (unknown) (no (unknown) (unknown) Resp (units (unkno wn) date) unknown) (unknown) (no (unknown) (unknown) Respiratory Rate (units (unknown) date) 16 unknown) (unknown) (no (unknown) (unknown) Signed By: (units (unk nown) date) unknown) (unknown) (no (unknown) (unknown) Skin care: usual (units (unknown) date) care unknown) (unknown) (no (unknown) (unknown) Skin (units (unkno wn) date) unknown) (unknown) (no (unknown) (unknown) Skin/Wound/Dressin (units (unknown) date) g Care unknown) (unknown) (no (unknown) (unknown) Stand Alone Forms: (units (unknown) date) Patient Portal/API, unknown) Stroke Signs + Symptoms (unknown) (no (unknown) (unknown) Start Date: (units (un known) date) 04/15/22 unknown) (unknown) (no (unknown) (unknown) Start Time: 08:39 (units (unknown) date) unknown) (unknown) (no (unknown) (unknown) Status at (units (unkn own) date) Discharge unknown) (unknown) (no (unknown) (unknown) Status: Acute (units ( unknown) date) unknown) (unknown) (no (unknown) (unknown) Summary (units (unkno wn) date) unknown) (unknown) (no (unknown) (unknown) TAKE ONE TABLET BY (units (unknown) date) MOUTH TWICE DAILY unknown) (unknown) (no (unknown) (unknown) Temperature 97.7 F (units (unknown) date) unknown) (unknown) (no (unknown) (unknown) Time Spent with (units (unknown) date) Patient unknown) (unknown) (no (unknown) (unknown) Time attestation: (units (unknown) date) unknown) (unknown) (no (unknown) (unknown) Total time spent (units (unknown) date) providing and/or unknown) coordinating discharge services: (unknown) (no (unknown) (unknown) Visit (units (unkno wn) date) Report/Discharge unknown) Packet (unknown) (no (unknown) (unknown) Vital Signs (units (un known) date) unknown) (unknown) (no (unknown) (unknown) WBC 11.7 H (units (unk n) date) unknown) (unknown) (no (unknown) (unknown) [Embedded Image (units (unknown) date) Not Available] unknown) (unknown) (no (unknown) (unknown) aspirin 81 mg (units ( unknown) date) tablet,chewable unknown) (unknown) (no (unknown) (unknown) calm (units (unkno wn) date) unknown) (unknown) (no (unknown) (unknown) fever, increased (units (unknown) date) pain, unusual unknown) drainage and unusual redness (unknown) (no (unknown) (unknown) hemostatic. QBL (units (unknown) date) 332 mL. Normal unknown) course. (unknown) (no (unknown) (unknown) sertraline (units (unk n) date) [Zoloft] 100 mg unknown) tablet (unknown) (no (unknown) (unknown) valacyclovir (units (u nknown) date) [Valtrex] 500 mg unknown) tablet (unknown) (no (unknown) (unknown) voiding normally. (units (unknown) date) Bleeding light to unknown) moderate without clots. Result panel 30 (unknown) (no (unknown) (unknown) (no value) (units (unk nown) date) unknown) (unknown) (no (unknown) (unknown) (1) (normal (units (unknown) date) spontaneous vaginal unknown) delivery): (unknown) (no (unknown) (unknown) (2 week telehealth (units (unknown) date) visit as scheduled unknown) (unknown) (no (unknown) (unknown) (past 8 hours): (units (unknown) date) unknown) (unknown) (no (unknown) (unknown) [id number] (units (unkno wn) date) unknown) (unknown) (no (unknown) (unknown) 04/15/22 04/15/22 (units (unknown) date) unknown) (unknown) (no (unknown) (unknown) 04/15/22 05:17 (units (unknown) date) unknown) (unknown) (no (unknown) (unknown) 04/15/22 06:05 (units (unknown) date) unknown) (unknown) (no (unknown) (unknown) 04/15/22 06:15 (units (unknown) date) unknown) (unknown) (no (unknown) (unknown) 04/15/22 (units (unkno wn) date) unknown) (unknown) (no (unknown) (unknown) 04/16/22 09:13 (units (unknown) date) unknown) (unknown) (no (unknown) (unknown) 06:15 06:15 (units (un known) date) unknown) (unknown) (no (unknown) (unknown) 06:27 04/15/22 (units (unknown) date) unknown) (unknown) (no (unknown) (unknown) 07:44 (units (unkno wn) date) unknown) (unknown) (no (unknown) (unknown) 100 mg PO DAILY (units (unknown) date) unknown) (unknown) (no (unknown) (unknown) 1: (units (unkno wn) date) unknown) (unknown) (no (unknown) (unknown) 500 mg BID (units (unk nown) date) unknown) (unknown) (no (unknown) (unknown) 6 week (units (unknown) date) visit as scheduled) unknown) (unknown) (no (unknown) (unknown) 81 mg PO DAILY (units (unknown) date) unknown) (unknown) (no (unknown) (unknown) Activity: low suh (units (unknown) date) for 2 weeks to unknown) allow for healing. (unknown) (no (unknown) (unknown) Age/Sex: 31 / F (units (unknown) date) unknown) (unknown) (no (unknown) (unknown) Antibody Screen (units (unknown) date) Negative unknown) (unknown) (no (unknown) (unknown) Appearance: (units (un known) date) grossly normal unknown) (unknown) (no (unknown) (unknown) Arrived in (units (unk nown) date) spontaneous labor. unknown) Progressed well, augmented with AROM. MSAF noted. (unknown) (no (unknown) (unknown) Baso # (Auto) 0 (units (unknown) date) unknown) (unknown) (no (unknown) (unknown) Baso % (Auto) 0.3 (units (unknown) date) unknown) (unknown) (no (unknown) (unknown) Blood Pressure (units (unknown) date) 109/63 134/66 unknown) (unknown) (no (unknown) (unknown) Blood Type A (units (u nknown) date) Positive unknown) (unknown) (no (unknown) (unknown) Breast inspection: (units (unknown) date) normal inspection unknown) of the breasts (unknown) (no (unknown) (unknown) Chest (units (unkno wn) date) unknown) (unknown) (no (unknown) (unknown) Cognitive/behavior (units (unknown) date) al status at unknown) discharge: oriented, at baseline, oriented and (unknown) (no (unknown) (unknown) Comment: (units (unkno wn) date) unknown) (unknown) (no (unknown) (unknown) Const (units (unkno wn) date) unknown) (unknown) (no (unknown) (unknown) Consult to (units (unk nown) date) Anesthesiology unknown) Urgent (unknown) (no (unknown) (unknown) Consult to (units (unk nown) date) unknown) Paste Up Worker Routine (unknown) (no (unknown) (unknown) Consulting (units (unk n) date) Provider: unknown) Anesthesiologist (unknown) (no (unknown) (unknown) Consults: (units (unkn own) date) unknown) (unknown) (no (unknown) (unknown) : 1990 (units (unknown) date) Acct:[id number] unknown) (unknown) (no (unknown) (unknown) Date of Service: (units (unknown) date) 04/15/22 unknown) (unknown) (no (unknown) (unknown) Date of admission: (units (unknown) date) unknown) (unknown) (no (unknown) (unknown) Diet/Activity/[place] (units (unknown) date) tments unknown) (unknown) (no (unknown) (unknown) Diet: Regular (units ( unknown) date) unknown) (unknown) (no (unknown) (unknown) Discharge Data (units (unknown) date) unknown) (unknown) (no (unknown) (unknown) Discharge (units (unkn own) date) Diagnosis unknown) (unknown) (no (unknown) (unknown) Discharge Plan (units (unknown) date) unknown) (unknown) (no (unknown) (unknown) Discharge (units (unkn own) date) Providers unknown) (unknown) (no (unknown) (unknown) Discharge Summary (units (unknown) date) unknown) (unknown) (no (unknown) (unknown) Discharge orders + (units (unknown) date) Medications unknown) (unknown) (no (unknown) (unknown) Discharge (units (unkn own) date) provider: unknown) (unknown) (no (unknown) (unknown) Doctor (units (unkno wn) date) Miscellaneous, MD unknown) (unknown) (no (unknown) (unknown) Effort + (units (unkno wn) date) Inspection: normal unknown) respiratory effort (unknown) (no (unknown) (unknown) Eos # (Auto) 100 (units (unknown) date) unknown) (unknown) (no (unknown) (unknown) Eos % (Auto) 0.5 L (units (unknown) date) unknown) (unknown) (no (unknown) (unknown) Exam (units (unkno wn) date) unknown) (unknown) (no (unknown) (unknown) Extrem (units (unkno wn) date) unknown) (unknown) (no (unknown) (unknown) Eyes (units (unkno wn) date) unknown) (unknown) (no (unknown) (unknown) Follow (units (unkno wn) date) up/Referrals: unknown) (unknown) (no (unknown) (unknown) Functional status (units (unknown) date) at discharge: unknown) independent ambulation (unknown) (no (unknown) (unknown) GI (units (unkno wn) date) unknown) (unknown) (no (unknown) (unknown) (units (unkno wn) date) unknown) (unknown) (no (unknown) (unknown) Gender: Male (units (u nknown) date) unknown) (unknown) (no (unknown) (unknown) General: (units (unkno wn) date) appearance normal, unknown) both eyes and all related structures (unknown) (no (unknown) (unknown) General: gait (units ( unknown) date) normal and normal unknown) light touch, pain and propioception (unknown) (no (unknown) (unknown) General: healthy (units (unknown) date) appearing and unknown) comfortable (unknown) (no (unknown) (unknown) General: no rashes (units (unknown) date) or lesions noted unknown) (unknown) (no (unknown) (unknown) General: normal to (units (unknown) date) inspection and full unknown) ROM (unknown) (no (unknown) (unknown) Has provider been (units (unknown) date) notified: No unknown) (unknown) (no (unknown) (unknown) Hct 40.8 (units (unkno wn) date) unknown) (unknown) (no (unknown) (unknown) Hgb 13.8 (units (unkno wn) date) unknown) (unknown) (no (unknown) (unknown) Hospital Course (units (unknown) date) unknown) (unknown) (no (unknown) (unknown) Hospital Course: (units (unknown) date) unknown) (unknown) (no (unknown) (unknown) Infant Delivery (units (unknown) date) Method: Natural unknown) Vaginal (unknown) (no (unknown) (unknown) Inspection: other (units (unknown) date) (Uterus firm, unknown) midline, U-1. ) (unknown) (no (unknown) (unknown) [facility] (units (unknown) date) [address] unknown) [place] [id number] (unknown) (no (unknown) (unknown) [facility] (units (unkno wn) date) MARIBEL Ovalle, unknown) FIELD ENGINEER (unknown) (no (unknown) (unknown) Label Comments: (units (unknown) date) unknown) (unknown) (no (unknown) (unknown) Laboratory Results (units (unknown) date) - last 24 hr unknown) (unknown) (no (unknown) (unknown) Labs (units (unkno wn) date) unknown) (unknown) (no (unknown) (unknown) Labs: (units (unkno wn) date) unknown) (unknown) (no (unknown) (unknown) Laceration (units (unk nown) date) Description: unknown) Perineal - 1st Degree (unknown) (no (unknown) (unknown) Lymph # (Auto) (units (unknown) date) 1500 unknown) (unknown) (no (unknown) (unknown) Lymph % (Auto) (units (unknown) date) 12.8 L unknown) (unknown) (no (unknown) (unknown) MCH 29.7 (units (unkno wn) date) unknown) (unknown) (no (unknown) (unknown) MCHC 33.8 (units (unkn own) date) unknown) (unknown) (no (unknown) (unknown) MCV 88.0 (units (unkno wn) date) unknown) (unknown) (no (unknown) (unknown) [facility] (units (unknown) date) S, CNM, FIELD ENGINEER unknown) [Advanced Follow Up Rep] (unknown) (no (unknown) (unknown) Mental Status: (units (unknown) date) mental status unknown) grossly normal (unknown) (no (unknown) (unknown) Miscellaneous,Doct (units (unknown) date) or, MD [Primary unknown) Care Provider] (unknown) (no (unknown) (unknown) [place] # (Auto) 400 (units (unknown) date) unknown) (unknown) (no (unknown) (unknown) [place] % (Auto) 3.6 (units (unknown) date) unknown) (unknown) (no (unknown) (unknown) Neck (units (unkno wn) date) unknown) (unknown) (no (unknown) (unknown) Neck: normal (units (u nknown) date) visual inspection unknown) (unknown) (no (unknown) (unknown) Neuro (units (unkno wn) date) unknown) (unknown) (no (unknown) (unknown) Neut # (Auto) 9700 (units (unknown) date) H unknown) (unknown) (no (unknown) (unknown) Neut % (Auto) 82.8 (units (unknown) date) H unknown) (unknown) (no (unknown) (unknown) (units (unkno wn) date) unknown) (unknown) (no (unknown) (unknown) No Action (units (unkn own) date) unknown) (unknown) (no (unknown) (unknown) Normal 2nd stage (units (unknown) date) resulted in NSVB unknown) over 1st degree laceration, unrepaired and (unknown) (no (unknown) (unknown) Nutritional (units (un known) date) Appearance: average unknown) body habitus (unknown) (no (unknown) (unknown) Objective (units (unkn own) date) unknown) (unknown) (no (unknown) (unknown) Orientation: (units (u nknown) date) alert, awake and unknown) oriented x3 (unknown) (no (unknown) (unknown) Other: (units (unkno wn) date) unknown) (unknown) (no (unknown) (unknown) Overall status at (units (unknown) date) discharge: patient unknown) is back to baseline (unknown) (no (unknown) (unknown) Patient (units (unkno wn) date) Disposition: Home unknown) (unknown) (no (unknown) (unknown) Patient: (units (unkno wn) date) Maria Esther Cameron unknown) MR#: [id number] (unknown) (no (unknown) (unknown) Peripartum Data (units (unknown) date) unknown) (unknown) (no (unknown) (unknown) Plt Count 156 (units ( unknown) date) unknown) (unknown) (no (unknown) (unknown) Prescriptions: (units (unknown) date) unknown) (unknown) (no (unknown) (unknown) Primary Care (units (u nknown) date) Provider: unknown) Miscellaneous,Docto r (unknown) (no (unknown) (unknown) Primary care (units (u nknown) date) physician: unknown) (unknown) (no (unknown) (unknown) Provider (units (unkno wn) date) unknown) (unknown) (no (unknown) (unknown) Provider: [facility] (units (unknown) date) Vasquez unknown) (unknown) (no (unknown) (unknown) Psych (units (unkno wn) date) unknown) (unknown) (no (unknown) (unknown) Pulse Rate 105 H (units (unknown) date) unknown) (unknown) (no (unknown) (unknown) RBC 4.64 (units (unkno wn) date) unknown) (unknown) (no (unknown) (unknown) RDW 14.1 (units (unkno wn) date) unknown) (unknown) (no (unknown) (unknown) Reason for (units (unk nown) date) consultation: unknown) Epidural (unknown) (no (unknown) (unknown) Report to your (units (unknown) date) healthcare provider unknown) any signs of infection, such as:: chills, (unknown) (no (unknown) (unknown) Resp (units (unkno wn) date) unknown) (unknown) (no (unknown) (unknown) Respiratory Rate (units (unknown) date) 16 unknown) (unknown) (no (unknown) (unknown) Signed By: (units (unn) date) unknown) (unknown) (no (unknown) (unknown) Skin care: usual (units (unknown) date) care unknown) (unknown) (no (unknown) (unknown) Skin (units (unkno wn) date) unknown) (unknown) (no (unknown) (unknown) Skin/Wound/Dressin (units (unknown) date) g Care unknown) (unknown) (no (unknown) (unknown) Specific discharge (units (unknown) date) activities: Review unknown) warning signs including bleeding (unknown) (no (unknown) (unknown) Stand Alone Forms: (units (unknown) date) Patient Portal/API, unknown) Stroke Signs + Symptoms (unknown) (no (unknown) (unknown) Start Date: (units (un known) date) 04/15/22 unknown) (unknown) (no (unknown) (unknown) Start Time: 08:39 (units (unknown) date) unknown) (unknown) (no (unknown) (unknown) Status at (units (unkn own) date) Discharge unknown) (unknown) (no (unknown) (unknown) Status: Acute (units ( unknown) date) unknown) (unknown) (no (unknown) (unknown) Summary (units (unkno wn) date) unknown) (unknown) (no (unknown) (unknown) TAKE ONE TABLET BY (units (unknown) date) MOUTH TWICE DAILY unknown) (unknown) (no (unknown) (unknown) Temperature 97.7 F (units (unknown) date) unknown) (unknown) (no (unknown) (unknown) Time Spent with (units (unknown) date) Patient unknown) (unknown) (no (unknown) (unknown) Time attestation: (units (unknown) date) unknown) (unknown) (no (unknown) (unknown) Time spent: Less (units (unknown) date) than 30 minutes unknown) (unknown) (no (unknown) (unknown) Total time spent (units (unknown) date) providing and/or unknown) coordinating discharge services: (unknown) (no (unknown) (unknown) Visit (units (unkno wn) date) Report/Discharge unknown) Packet (unknown) (no (unknown) (unknown) Vital Signs (units (un known) date) unknown) (unknown) (no (unknown) (unknown) WBC 11.7 H (units (k n) date) unknown) (unknown) (no (unknown) (unknown) [Embedded Image (units (unknown) date) Not Available] unknown) (unknown) (no (unknown) (unknown) aspirin 81 mg (units ( unknown) date) tablet,chewable unknown) (unknown) (no (unknown) (unknown) calm (units (unkno wn) date) unknown) (unknown) (no (unknown) (unknown) fever, increased (units (unknown) date) pain, unusual unknown) drainage and unusual redness (unknown) (no (unknown) (unknown) hemostatic. QBL (units (unknown) date) 332 mL. Normal unknown) course. (unknown) (no (unknown) (unknown) (units (unk n) date) healing. unknown) (unknown) (no (unknown) (unknown) precautions, mood (units (unknown) date) changes (baby blues unknown) versus PPMD), risk of blood clot, normal (unknown) (no (unknown) (unknown) sertraline (units (unk nown) date) [Zoloft] 100 mg unknown) tablet (unknown) (no (unknown) (unknown) valacyclovir (units (u nknown) date) [Valtrex] 500 mg unknown) tablet (unknown) (no (unknown) (unknown) voiding normally. (units (unknown) date) Bleeding light to unknown) moderate without clots. Result panel 31 (unknown) (no (unknown) (unknown) (no value) (units (unk nown) date) unknown) (unknown) (no (unknown) (unknown) (1) (normal (units (unknown) date) spontaneous vaginal unknown) delivery): (unknown) (no (unknown) (unknown) (2 week telehealth (units (unknown) date) visit as scheduled unknown) (unknown) (no (unknown) (unknown) (past 8 hours): (units (unknown) date) unknown) (unknown) (no (unknown) (unknown) [id number] (units (unkno wn) date) unknown) (unknown) (no (unknown) (unknown) 04/15/22 04/15/22 (units (unknown) date) unknown) (unknown) (no (unknown) (unknown) 04/15/22 05:17 (units (unknown) date) unknown) (unknown) (no (unknown) (unknown) 04/15/22 06:05 (units (unknown) date) unknown) (unknown) (no (unknown) (unknown) 04/15/22 06:15 (units (unknown) date) unknown) (unknown) (no (unknown) (unknown) 04/15/22 (units (unkno wn) date) unknown) (unknown) (no (unknown) (unknown) 04/16/22 0902 (units ( unknown) date) unknown) (unknown) (no (unknown) (unknown) 04/16/22 09:13 (units (unknown) date) unknown) (unknown) (no (unknown) (unknown) 06:15 06:15 (units (un known) date) unknown) (unknown) (no (unknown) (unknown) 06:27 04/15/22 (units (unknown) date) unknown) (unknown) (no (unknown) (unknown) 07:44 (units (unkno wn) date) unknown) (unknown) (no (unknown) (unknown) 100 mg PO DAILY (units (unknown) date) unknown) (unknown) (no (unknown) (unknown) 1: (units (unkno wn) date) unknown) (unknown) (no (unknown) (unknown) 500 mg BID (units (k n) date) unknown) (unknown) (no (unknown) (unknown) 6 week (units (unknown) date) visit as scheduled) unknown) (unknown) (no (unknown) (unknown) 81 mg PO DAILY (units (unknown) date) unknown) (unknown) (no (unknown) (unknown) Activity: low suh (units (unknown) date) for 2 weeks to unknown) allow for healing. (unknown) (no (unknown) (unknown) Age/Sex: 31 / F (units (unknown) date) unknown) (unknown) (no (unknown) (unknown) Antibody Screen (units (unknown) date) Negative unknown) (unknown) (no (unknown) (unknown) Appearance: (units (un known) date) grossly normal unknown) (unknown) (no (unknown) (unknown) Arrived in (units (k ) ) spontaneous labor. unknown) Progressed well, augmented with AROM. MSAF noted. (unknown) (no (unknown) (unknown) Baso # (Auto) 0 (units (unknown) date) unknown) (unknown) (no (unknown) (unknown) Baso % (Auto) 0.3 (units (unknown) date) unknown) (unknown) (no (unknown) (unknown) Blood Pressure (units (unknown) date) 109/63 134/66 unknown) (unknown) (no (unknown) (unknown) Blood Type A (units (u nknown) date) Positive unknown) (unknown) (no (unknown) (unknown) Breast inspection: (units (unknown) date) normal inspection unknown) of the breasts (unknown) (no (unknown) (unknown) Chest (units (unkno wn) date) unknown) (unknown) (no (unknown) (unknown) Cognitive/behavior (units (unknown) date) al status at unknown) discharge: oriented, at baseline, oriented and (unknown) (no (unknown) (unknown) Comment: (units (unkno wn) date) unknown) (unknown) (no (unknown) (unknown) Const (units (unkno wn) date) unknown) (unknown) (no (unknown) (unknown) Consult to (units (unk n) ) Anesthesiology unknown) Urgent (unknown) (no (unknown) (unknown) Consult to (units (unk nown) date) unknown) Paste Up Worker Routine (unknown) (no (unknown) (unknown) Consulting (units (unk nown) date) Provider: unknown) Anesthesiologist (unknown) (no (unknown) (unknown) Consults: (units (unkn own) date) unknown) (unknown) (no (unknown) (unknown) Continued (units (unkn own) date) unknown) (unknown) (no (unknown) (unknown) : 1990 (units (unknown) date) Acct:[id number] unknown) (unknown) (no (unknown) (unknown) Date Patient Seen: (units (unknown) date) 04/16/22 unknown) (unknown) (no (unknown) (unknown) Date of Service: (units (unknown) date) 04/15/22 unknown) (unknown) (no (unknown) (unknown) Date of admission: (units (unknown) date) unknown) (unknown) (no (unknown) (unknown) Diagnoses: (units (unk nown) date) unknown) (unknown) (no (unknown) (unknown) Diet/Activity/Davina (units (unknown) date) tments unknown) (unknown) (no (unknown) (unknown) Diet: Regular (units ( unknown) date) unknown) (unknown) (no (unknown) (unknown) Discharge Data (units (unknown) date) unknown) (unknown) (no (unknown) (unknown) Discharge Date: (units (unknown) date) 04/16/22 unknown) (unknown) (no (unknown) (unknown) Discharge (units (unkn own) date) Diagnosis unknown) (unknown) (no (unknown) (unknown) Discharge Plan (units (unknown) date) unknown) (unknown) (no (unknown) (unknown) Discharge (units (unkn own) date) Providers unknown) (unknown) (no (unknown) (unknown) Discharge Summary (units (unknown) date) unknown) (unknown) (no (unknown) (unknown) Discharge orders + (units (unknown) date) Medications unknown) (unknown) (no (unknown) (unknown) Discharge (units (unkn own) date) provider: unknown) (unknown) (no (unknown) (unknown) Discontinued (units (u nknown) date) unknown) (unknown) (no (unknown) (unknown) Doctor (units (o wn) date) Miscellaneous, MD unknown) (unknown) (no (unknown) (unknown) Effort + (units (unkno wn) date) Inspection: normal unknown) respiratory effort (unknown) (no (unknown) (unknown) Eos # (Auto) 100 (units (unknown) date) unknown) (unknown) (no (unknown) (unknown) Eos % (Auto) 0.5 L (units (unknown) date) unknown) (unknown) (no (unknown) (unknown) Exam (units (unkno wn) date) unknown) (unknown) (no (unknown) (unknown) Extrem (units (unkno wn) date) unknown) (unknown) (no (unknown) (unknown) Eyes (units (unkno wn) date) unknown) (unknown) (no (unknown) (unknown) Follow (units (unkno wn) date) up/Referrals: unknown) (unknown) (no (unknown) (unknown) Functional status (units (unknown) date) at discharge: unknown) independent ambulation (unknown) (no (unknown) (unknown) GI (units (unkno wn) date) unknown) (unknown) (no (unknown) (unknown) (units (unkno wn) date) unknown) (unknown) (no (unknown) (unknown) Gender: Male (units (u nknown) date) unknown) (unknown) (no (unknown) (unknown) General: (units (o wn) date) appearance normal, unknown) both eyes and all related structures (unknown) (no (unknown) (unknown) General: gait (units ( unknown) date) normal and normal unknown) light touch, pain and propioception (unknown) (no (unknown) (unknown) General: healthy (units (unknown) date) appearing and unknown) comfortable (unknown) (no (unknown) (unknown) General: no rashes (units (unknown) date) or lesions noted unknown) (unknown) (no (unknown) (unknown) General: normal to (units (unknown) date) inspection and full unknown) ROM (unknown) (no (unknown) (unknown) Has provider been (units (unknown) date) notified: No unknown) (unknown) (no (unknown) (unknown) Hct 40.8 (units (unkno wn) date) unknown) (unknown) (no (unknown) (unknown) Hgb 13.8 (units (unkno wn) date) unknown) (unknown) (no (unknown) (unknown) Hospital Course (units (unknown) date) unknown) (unknown) (no (unknown) (unknown) Hospital Course: (units (unknown) date) unknown) (unknown) (no (unknown) (unknown) Delivery (units (unknown) date) Method: Natural unknown) Vaginal (unknown) (no (unknown) (unknown) Inspection: other (units (unknown) date) (Uterus firm, unknown) midline, U-1. 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8 L unknown) (unknown) (no (unknown) (unknown) MCH 29.7 (units (unkno wn) date) unknown) (unknown) (no (unknown) (unknown) MCHC 33.8 (units (unkn own) date) unknown) (unknown) (no (unknown) (unknown) MCV 88.0 (units (unkno wn) date) unknown) (unknown) (no (unknown) (unknown) [place] Ovalle (units (unknown) date) S, CNM, FIELD ENGINEER unknown) [Advanced Follow Up Rep] (unknown) (no (unknown) (unknown) Mental Status: (units (unknown) date) mental status unknown) grossly normal (unknown) (no (unknown) (unknown) Miscellaneous,Doct (units (unknown) date) or, MD [Primary unknown) Care Provider] (unknown) (no (unknown) (unknown) [place] # (Auto) 400 (units (unknown) date) unknown) (unknown) (no (unknown) (unknown) [place] % (Auto) 3.6 (units (unknown) date) unknown) (unknown) (no (unknown) (unknown) Neck (units (unkno wn) date) unknown) (unknown) (no (unknown) (unknown) Neck: normal (units (u nknown) date) visual inspection unknown) (unknown) (no (unknown) (unknown) Neuro (units (unkno wn) date) unknown) (unknown) (no (unknown) (unknown) Neut # (Auto) 9700 (units (unknown) date) H unknown) (unknown) (no (unknown) (unknown) Neut % (Auto) 82.8 (units (unknown) date) H unknown) (unknown) (no (unknown) (unknown) (units (unkno wn) date) unknown) (unknown) (no (unknown) (unknown) Normal 2nd stage (units (unknown) date) resulted in NSVB unknown) over 1st degree laceration, unrepaired and (unknown) (no (unknown) (unknown) Nutritional (units (un known) date) Appearance: average unknown) body habitus (unknown) (no (unknown) (unknown) Objective (units (unkn own) date) unknown) (unknown) (no (unknown) (unknown) Orientation: (units (u nknown) date) alert, awake and unknown) oriented x3 (unknown) (no (unknown) (unknown) Other: (units (unkno wn) date) unknown) (unknown) (no (unknown) (unknown) Overall status at (units (unknown) date) discharge: patient unknown) is back to baseline (unknown) (no (unknown) (unknown) Patient (units (unkno wn) date) Disposition: Home unknown) (unknown) (no (unknown) (unknown) Patient: (units (unkno wn) date) Maria Esther Cameron unknown) MR#: [id number] (unknown) (no (unknown) (unknown) Peripartum Data (units (unknown) date) unknown) (unknown) (no (unknown) (unknown) Plt Count 156 (units ( unknown) date) unknown) (unknown) (no (unknown) (unknown) Prescriptions: (units (unknown) date) unknown) (unknown) (no (unknown) (unknown) Primary Care (units (u nknown) date) Provider: unknown) Miscellaneous,Docto r (unknown) (no (unknown) (unknown) Primary care (units (u nknown) date) physician: unknown) (unknown) (no (unknown) (unknown) Provider Discharge (units (unknown) date) Comment: home with unknown) (unknown) (no (unknown) (unknown) Provider (units (unkno wn) date) unknown) (unknown) (no (unknown) (unknown) Provider: [place] (units (unknown) date) Vasquez unknown) (unknown) (no (unknown) (unknown) Psych (units (unkno wn) date) unknown) (unknown) (no (unknown) (unknown) Pulse Rate 105 H (units (unknown) date) unknown) (unknown) (no (unknown) (unknown) RBC 4.64 (units (unkno wn) date) unknown) (unknown) (no (unknown) (unknown) RDW 14.1 (units (unkno wn) date) unknown) (unknown) (no (unknown) (unknown) Reason for (units (unk nown) date) consultation: unknown) Epidural (unknown) (no (unknown) (unknown) Report to your (units (unknown) date) healthcare provider unknown) any signs of infection, such as:: chills, (unknown) (no (unknown) (unknown) Resp (units (unkno wn) date) unknown) (unknown) (no (unknown) (unknown) Respiratory Rate (units (unknown) date) 16 unknown) (unknown) (no (unknown) (unknown) Signed (units (unkno wn) date) By:<Electronically unknown) signed by [place] Ovalle> (unknown) (no (unknown) (unknown) Skin care: usual (units (unknown) date) care unknown) (unknown) (no (unknown) (unknown) Skin (units (unkno wn) date) unknown) (unknown) (no (unknown) (unknown) Skin/Wound/Dressin (units (unknown) date) g Care unknown) (unknown) (no (unknown) (unknown) Specific discharge (units (unknown) date) activities: Review unknown) warning signs including bleeding (unknown) (no (unknown) (unknown) Stand Alone Forms: (units (unknown) date) Patient Portal/API, unknown) Stroke Signs + Symptoms (unknown) (no (unknown) (unknown) Start Date: (units (un known) date) 04/15/22 unknown) (unknown) (no (unknown) (unknown) Start Time: 08:39 (units (unknown) date) unknown) (unknown) (no (unknown) (unknown) Status at (units (unkn own) date) Discharge unknown) (unknown) (no (unknown) (unknown) Status: Acute (units ( unknown) date) unknown) (unknown) (no (unknown) (unknown) Summary (units (unkno wn) date) unknown) (unknown) (no (unknown) (unknown) TAKE ONE TABLET BY (units (unknown) date) MOUTH TWICE DAILY unknown) (unknown) (no (unknown) (unknown) Temperature 97.7 F (units (unknown) date) unknown) (unknown) (no (unknown) (unknown) Time Patient Seen: (units (unknown) date) 08:15 unknown) (unknown) (no (unknown) (unknown) Time Spent with (units (unknown) date) Patient unknown) (unknown) (no (unknown) (unknown) Time attestation: (units (unknown) date) unknown) (unknown) (no (unknown) (unknown) Time spent: Less (units (unknown) date) than 30 minutes unknown) (unknown) (no (unknown) (unknown) Total time spent (units (unknown) date) providing and/or unknown) coordinating discharge services: (unknown) (no (unknown) (unknown) Uncomplicated term (units (unknown) date) NSVB. unknown) (unknown) (no (unknown) (unknown) Visit (units (unkno wn) date) Report/Discharge unknown) Packet (unknown) (no (unknown) (unknown) Vital Signs (units (un known) date) unknown) (unknown) (no (unknown) (unknown) WBC 11.7 H (units (unk nown) date) unknown) (unknown) (no (unknown) (unknown) [Embedded Image (units (unknown) date) Not Available] unknown) (unknown) (no (unknown) (unknown) aspirin 81 mg (units ( unknown) date) tablet,chewable unknown) (unknown) (no (unknown) (unknown) calm (units (unkno wn) date) unknown) (unknown) (no (unknown) (unknown) fever, increased (units (unknown) date) pain, unusual unknown) drainage and unusual redness (unknown) (no (unknown) (unknown) hemostatic. QBL (units (unknown) date) 332 mL. Normal unknown) course. (unknown) (no (unknown) (unknown) (units (unk nown) date) healing. unknown) (unknown) (no (unknown) (unknown) precautions, mood (units (unknown) date) changes (baby blues unknown) versus PPMD), risk of blood clot, normal (unknown) (no (unknown) (unknown) sertraline (units (unk nown) date) [Zoloft] 100 mg unknown) tablet (unknown) (no (unknown) (unknown) valacyclovir (units (u nknown) date) [Valtrex] 500 mg unknown) tablet (unknown) (no (unknown) (unknown) voiding normally. (units (unknown) date) Bleeding light to unknown) moderate without clots. Social History date description facility 2022-03-18 00:00 Unknown if ever smoked [facility] 2022-04-06 00:00 Unknown if ever smoked [facility] 2022-04-15 00:00 Never smoked tobacco (finding) [facility] Vital Signs date measurement value units 2022-03-18 00:00 BMI 31.4 kg/m2 2022-03-18 00:00 BP_diastolic 70 mmHg 2022-03-18 00:00 BP_systolic 118 mmHg 2022-03-18 00:00 heart_rate 88 /min 2022-03-18 00:00 height_metric 160.02 cm 2022-03-18 00:00 height_standard 63 in 2022-03-18 00:00 o2_saturation 98 % 2022-03-18 00:00 respiration_rate 16 /min 2022-03-18 00:00 temperature_metric 36.94 C 2022-03-18 00:00 temperature_standard 98.5 F 2022-03-18 00:00 weight_metric 80.48 kg 2022-03-18 00:00 weight_standard 177.43 lb 2022-04-16 00:00 BP_diastolic 62 mmHg 2022-04-16 00:00 BP_systolic 103 mmHg 2022-04-16 00:00 heart_rate 81 /min 2022-04-16 00:00 height_metric 160.02 cm 2022-04-16 00:00 height_standard 63 in 2022-04-16 00:00 respiration_rate 16 /min 2022-04-16 00:00 temperature_metric 36.61 C 2022-04-16 00:00 temperature_standard 97.9 F 2022-04-16 00:00 weight_metric 72.57 kg 2022-04-16 00:00 weight_standard 159.99 lb
[2022-05-15 14:24] LABS: ALBUMIN/GLOBULIN RATIO 1.4 (1.0-2.2); BILIRUBIN,TOTAL 0.5 mg/dL (0.2-1.0); CALCIUM 8.8 mg/dL (8.5-10.3); CREATININE 0.7 mg/dL (0.4-1.0); POTASSIUM 3.7 mmol/L (3.5-5.0); TOTAL PROTEIN 6.9 g/dL (6.7-8.2)
--- NOTE | 2022-05-15 14:32 | CT Report ---
PROCEDURE: CT angiogram chest, abdomen and pelvis with contrast INDICATIONS: back/chest pain, aorta protocol CONTRAST: 100ml Omnipaque 300 TECHNIQUE: After the administration of intravenous contrast, 2 mm axial images were acquired of the chest abdome n and pelvis during the arterial phase. In addition, 1 mm lung kernel and 5 mm soft tissue kernel rec onstructions were performed. coronal oblique maximum intensity projection (MIP) reformats, 8 mm axial MIP, and 5 mm coronal and sagittal MPR reformats were then performed through the thorax. For radiati on dose reduction, the following was used: automated exposure control, adjustment of mA and/or kV acc ording to patient size. COMPARISON: None FINDINGS: Chest: Cardiovascular: Heart size is normal. Aorta and great vessels are unremarkable without evidence of aneurysm. Lungs and pleural spaces: The lung bhandari are clear without nodule, infiltrate or interstitial promi nence. Pleural spaces show no effusion or pneumothorax. Lymph nodes: No mediastinal, hilar or axillary adenopathy. Mediastinum: Anterior mediastinum unremarkable. No hiatal hernia. Bones: Unremarkable. No acute fracture. Other: Thyroid unremarkable. Abdomen and Pelvis: Liver: Normal in size and attenuation. No contour deformity present. Biliary system: The noncalcified stones noted layering dependently in the gallbladder Pancreas: Unremarkable without mass or inflammation evident. Spleen: Normal in size and density. Adrenals: Normal morphology and density. Reproductive system: Unremarkable as visualized. Urinary system: Normal renal size and attenuation. No renal calculi, hydronephrosis, or solid mass p resent. Urinary bladder unremarkable. Gastrointestinal system: The bowel appears unremarkable with no evidence of bowel obstruction or inf lammation. The stomach appears unremarkable. No findings to suggest acute appendicitis. Peritoneal spaces: No intra- or retroperitoneal adenopathy. No free air. No free fluid. Vasculature: The IVC, aorta and iliac vasculature are unremarkable. Musculoskeletal: Normal bone mineralization. No acute fractures. Abdominal wall intact without sheila dence of ventral or inguinal hernias. IMPRESSION: Cholelithiasis without CT evidence of acute cholecystitis. Otherwise unremarkable CT angiogram chest abdomen and pelvis Reviewed by: Stewart Hong MD on 05/15/2022 1:31 PM AKIDANIA Approved by: Stewart Hong MD on 05/15/2022 1:31 PM AKDT Station ID: [id number]
[2022-05-15 14:53] VITALS: BP 109/64
== END 2022-05-15 15:05 | disposition home or self-care (01) ==
LOC: EDUNIT# → ED 13:21
DX: M54.6 Pain in thoracic spine (principal); K80.20 Calculus of gallbladder without cholecystitis without obstruction; R07.9 Chest pain, unspecified
CPT/HCPCS: 36415; 71275; 74174; 80053; 85025; 85610; 93005; 99283; 99284; A9270; Q9967